=== PATIENT | male | born 1995 | race Caucasian/White ===

== ENCOUNTER 2016-09-09 15:36 | Emergency (ER) | payer BC ==
[2016-09-09 16:22] VITALS: BP 132/81
--- NOTE | 2016-09-09 16:38 | EDM.PDOC ---
ED HPI GENERAL MEDICAL PROBLEM - General Chief Complaint: Lower Extremity Injury/Pain Stated Complaint: RIGHT FOOT PAIN Time Seen by Provider: 09/09/16 16:14 Source of Information: Reports: Patient History Limitations: Reports: No Limitations - History of Present Illness INITIAL COMMENTS - FREE TEXT/NARRATIVE: HISTORY AND PHYSICAL: History of present illness: [21-year-old male with a history of paraplegia since a spinal fracture and spinal cord injury sometime ago now presents to the emergency department concerned that he has injured his right foot and ankle. Patient states from the midcalf down he cannot feel either lower extremity as a baseline. He walks with a walker. He was in his normal state of health until this morning when he woke up and appreciated his right ankle and right foot to be swollen. Patient had no wound that he is aware of and no identifiable event that he is aware could' ve injured his ankle however as mentioned he has no feeling, and feels he could easily injury by twisting it and asked on the putting weight on it without knowing.. No prior ankle or foot injury to the right lower extremity. He is not on any blood thinners nor does have any bone or bleeding problems. Review of systems: As per history of present illness and below otherwise all systems reviewed and negative. Past medical history: As per history of present illness and as reviewed below otherwise noncontributory. Surgical history: As per history of present illness and as reviewed below otherwise noncontributory. Social history: No reported history of drug or alcohol abuse. Family history: As per history of present illness and as reviewed below otherwise noncontributory. Physical exam: Well-appearing patient distress normal sensation and nontender right lower extremity down to the midcalf at which point patient has his baseline of distal anesthesia. He does have soft tissue swelling of the ankle and proximal foot. No erythema warmth fluctuance or crepitus. No bony deformity. HEENT: Normocephalic, atraumatic, pupils normal and symmetrical, supple neck, no meningismus, normal color Lungs: Normal and symmetrical chest wall excursion bilateral with no tachypnea or increased work of breathing, grossly normal chest exam Heart: No tachycardia in triage Abdomen: Normal-appearing, nondistended, no visible mass or asymmetry Pelvis: Normal-appearing Genitourinary: Deferred Rectal exam: Deferred Extremities: Otherwise Atraumatic, normal use and range of motion, no visible evidence of gross neurovascular compromise Neuro: Awake, alert, oriented. Normal and appropriate mental status. Cranial nerves grossly unremarkable. Motor function normal. Nonfocal neurologic exam. Diagnostics: [X-ray right foot and right ankle both negative interpreted by me report reviewed Therapeutics: [Ice pack applied] Per seizure: Splint applied by nurse and ER Pebbles Posterior Ortho-Glass Karthikeyan short leg splint applied 8 ankle. Hard sole shoe applied to keep it clean. Patient is aware to avoid weightbearing and use his walker. He will S ice and elevate and follow-up with PCP for reevaluation and referral to orthopedics as needed. Impression: [Right ankle swelling Right ankle sprain] Plan: [Patient without feeling in the extremity now with a suspected occult injury. No evidence of infectious findings were prodrome. Ice pack applied and x-rays pending.] X-rays negative. Signs and symptoms consistent with sprain. Splint applied. Rest ice elevate. Follow-up PCP. Definitive disposition and diagnosis as appropriate pending reevaluation and review of above. right foot Pain Score (Numeric/FACES): 7 - Related Data Allergies Allergy/AdvReac Type Severity Reaction Status Date / Time No Known Allergies Allergy Verified 09/09/16 16:17 Home Meds: Home Meds . [No Known Home Meds] 08/28/13 [History] Past Medical History - Past Health History Medical/Surgical History: Denies Medical/Surgical History Musculoskeletal History: Reports: Back Pain, Chronic, Other (See Below) Other Musculoskeletal History: left lower extremity weakness - Past Surgical History Musculoskeletal Surgical History: Reports: Other (See Below) Social & Family History - Family History Family Medical History: Noncontributory - Tobacco Use Smoking Status *Q: Never Smoker Second Hand Smoke Exposure: No - Alcohol Use Days Per Week of Alcohol Use: 4 Number of Drinks Per Day: 12 Total Drinks Per Week: 48 - Recreational Drug Use Recreational Drug Use: No Review of Systems - Review of Systems Review Of Systems: See Below (History of present illness) ED EXAM, GENERAL - Physical Exam Exam: See Below (History of present illness) Course - Vital Signs Last Recorded V/S: Last Vital Signs Temp 35.7 C 09/09/16 16:19 Pulse 89 09/09/16 16:19 Resp 18 09/09/16 16:19 BP 132/81 09/09/16 16:19 Pulse Ox 95 09/09/16 16:19 - Orders/Labs/Meds Orders: Active Orders 24 hr Category Date Time Status Ankle Min 3V Rt [CR] Stat Exams 09/09/16 16:32 Taken Foot Comp Min 3V Rt [CR] Stat Exams 09/09/16 16:32 Ordered Departure - Departure Time of Disposition: 18:29 Disposition: Home, Self-Care 01 Condition: Good Clinical Impression: Right ankle sprain, Injury of ankle - Discharge Information Instructions: Ankle Sprain, [id number], Cast or Splint Care, [id number] Referrals: Van Doe MD [Primary Care Provider] - Forms: ED Department Discharge Additional Instructions: It appears the of sprained her right ankle. Wear the splint until follow-up with your Dr. in several days. Rest apply ice and elevate whenever possible use walker try to keep the weight off it. Take ibuprofen every 6 hours as needed and follow-up with your doctor as directed for reevaluation and referral to orthopedics as needed. - My Orders Last 24 Hours: My Active Orders 09/09/16 16:32 Ankle Min 3V Rt [CR] Stat Foot Comp Min 3V Rt [CR] Stat - Assessment/Plan Last 24 Hours: My Active Orders 09/09/16 16:32 Ankle Min 3V Rt [CR] Stat Foot Comp Min 3V Rt [CR] Stat
--- NOTE | 2016-09-10 10:43 | CR ---
EXAM DATE: 09/09/16 PATIENT'S AGE: 21 Patient: REMINGTON DHILLON Facility: [place], [place] Site . Site : 1995 Study: XRay Extremity Right foot [id number] 5:16:45 PM Ordering Physician: Ezio Peters Final Report: INDICATION: injury, pain TECHNIQUE: 3 views of the right foot COMPARISON: None FINDINGS: Bones: No fractures or bone lesions. Joint spaces: Unremarkable. Soft tissues: Unremarkable. IMPRESSION: No acute bony abnormality Dictated by Arnie Calderon MD @ 09/09/2016 5:56:24 PM Dictated by: Arnie Calderon MD @ 09/09/2016 17:56:31 (Electronic Signature) Report Signed by Proxy. [facility]
--- NOTE | 2016-09-10 10:45 | CR ---
EXAM DATE: 09/09/16 PATIENT'S AGE: 21 Patient: REMINGTON DHILLON Facility: [place], [place] Site . Site : 1995 Study: XRay Extremity Right ankle [id number]/1/2017 5:17:39 PM Ordering Physician: Ezio Peters Final Report: INDICATION: pain TECHNIQUE: Three views of the right ankle. COMPARISON: August 28, 2013. FINDINGS: Bones: Remote posttraumatic deformity along posterior malleolus and along the distal tibial cortex near the syndesmotic interval. No acute fractures or bone lesions. Joint spaces: Unremarkable. Soft tissues: Unremarkable. IMPRESSION: No acute bony abnormality. Dictated by Arnie Calderon MD @ 09/09/2016 6:03:54 PM Dictated by: Arnie Calderon MD @ 09/09/2016 18:04:09 (Electronic Signature) Report Signed by Proxy. [facility]
== END 2016-09-09 18:36 | disposition home or self-care (01) ==
LOC: MW.ED 15:36
DX: S93.401A Sprain of unspecified ligament of right ankle, initial encounter (principal); X58.XXXA Exposure to other specified factors, initial encounter
CPT/HCPCS: 29515; 73610-26-RT; 73610-RT; 73630-26-RT; 73630-RT; 99283

== ENCOUNTER 2017-07-28 00:49 | Inpatient (IN) | payer BC, OTHER ==
--- NOTE | 2017-07-28 00:51 | EDM.PDOC ---
ED HPI GENERAL MEDICAL PROBLEM - General Stated Complaint: LEFT FOOT PAIN Time Seen by Provider: 07/28/17 00:51 Source of Information: Reports: Patient - History of Present Illness INITIAL COMMENTS - FREE TEXT/NARRATIVE: HISTORY AND PHYSICAL: History of present illness: [Patient presents with left lower extremity pain by private vehicle Patient is clinically intoxicated, he presents with what appears to be an unstable fracture distal tib-fib, he states that he was trying to get into a lazy bare boy chair tonight, does not provide further history about the incident No fever nausea vomiting chills sweats no chest pain shortness breath headache dizziness palpitation no bowel or urine symptoms ] Review of systems: As per history of present illness and below otherwise all systems reviewed and negative. Past medical history: As per history of present illness and as reviewed below otherwise noncontributory. Surgical history: As per history of present illness and as reviewed below otherwise noncontributory. Social history: No reported history of drug or alcohol abuse. Family history: As per history of present illness and as reviewed below otherwise noncontributory. Physical exam: HEENT: Atraumatic, normocephalic, pupils reactive, negative for conjunctival pallor or scleral icterus, mucous membranes moist, throat clear, neck supple, nontender, trachea midline. Lungs: Clear to auscultation, breath sounds equal bilaterally, chest nontender. Heart: S1S2, regular, negative for clicks, rubs, or JVD. Abdomen: Soft, nondistended, nontender. Negative for masses or hepatosplenomegaly. Negative for costovertebral tenderness. Pelvis: Stable nontender. Genitourinary: Deferred. Rectal: Deferred. Extremities: Atraumatic, negative for cords or calf pain. Neurovascular unremarkable. Left lower extremity neurovascularly intact, unstable fracture Neuro: Awake, alert, oriented. Cranial nerves II through XII unremarkable. Cerebellum unremarkable. Motor and sensory unremarkable throughout. Exam nonfocal. Diagnostics: [CBC CMP INR troponin EKG chest 1 view ] Therapeutics: [1 L normal saline bolus Zofran] Morphine 2 mg IV Ortho-Glass splint applied Patient admitted to Dr. Keller Impression: [ distal tib-fib fracture ] Dehydration Sinus tachycardia alcohol intoxication Definitive disposition and diagnosis as appropriate pending reevaluation and review of above. Left Lower Leg Pain Score (Numeric/FACES): 9 - Related Data Allergies Allergy/AdvReac Type Severity Reaction Status Date / Time No Known Allergies Allergy Verified 09/09/16 16:17 Home Meds: Home Meds . [No Known Home Meds] 08/28/13 [History] Past Medical History - Past Health History Medical/Surgical History: Denies Medical/Surgical History Musculoskeletal History: Reports: Back Pain, Chronic, Other (See Below) Other Musculoskeletal History: left lower extremity weakness - Past Surgical History Musculoskeletal Surgical History: Reports: Other (See Below) Social & Family History - Family History Family Medical History: Noncontributory ED ROS GENERAL - Review of Systems Review Of Systems: See Below ED EXAM, GENERAL - Physical Exam Exam: See Below Course - Vital Signs Last Recorded V/S: Last Vital Signs Temp 98.7 F 07/28/17 01:13 Pulse 154 H 07/28/17 01:13 Resp 18 07/28/17 01:13 BP 151/67 H 07/28/17 01:31 Pulse Ox 97 07/28/17 01:13 - Orders/Labs/Meds Orders: Active Orders 24 hr Category Date Time Status Admission Status [Patient Status] [ADT] Stat ADT 07/28/17 02:03 Active EKG 12 Lead [EKG Documentation Completion] [RC] STAT Care 07/28/17 00:55 Active Elevate Extremity [RC] CONTINUOUS Care 07/28/17 02:07 Active Nothing Per Oral Diet [DIET] Diet 07/28/17 Breakfast Active Ankle 2V Lt [CR] Stat Exams 07/28/17 00:54 Taken Tibia Fibula Lt [CR] Stat Exams 07/28/17 00:54 Taken DRUG SCREEN, URINE [URCHEM] Stat Lab 07/28/17 01:10 Ordered UA W/MICROSCOPIC [URIN] Stat Lab 07/28/17 01:10 Ordered HYDROmorphone [Dilaudid] Med 07/28/17 02:09 Active 1 mg IVPUSH Q3H PRN Lactated Ringers [Ringers, Lactated] 1,000 ml Med 07/28/17 02:15 Active IV ASDIRECTED MVI, Adult with Vitamin K [Infuvite Adult] 10 ml Med 07/28/17 02:07 Active Thiamine [Vitamin B-1] 100 mg Folic Acid 1 mg Sodium Chloride 0.9% [Normal Saline] 1,000 ml IV ONETIME Ondansetron [Zofran] Med 07/28/17 02:15 Active 4 mg IVPUSH Q6H Sodium Chloride 0.9% [Normal Saline] 1,000 ml Med 07/28/17 01:49 Active IV .Bolus Sodium Chloride 0.9% [Normal Saline] 1,000 ml Med 07/28/17 02:24 Active IV .Bolus Medication Orders Hydromorphone HCl (Dilaudid) 1 mg IVPUSH Q3H PRN PRN Reason: Pain Sodium Chloride (Normal Saline) 1,000 mls @ 999 mls/hr IV .Bolus ONE Stop: 07/28/17 02:49 Last Admin: 07/28/17 01:56 Dose: 999 mls/hr Multivitamins/Minerals 10 ml/Thiamine HCl 100 mg/ Folic Acid 1 mg/ Sodium Chloride 1,011.2 mls @ 999 mls/hr IV ONETIME ONE Stop: 07/28/17 03:07 Lactated Ringer's (Ringers, Lactated) 1,000 mls @ 125 mls/hr IV ASDIRECTED MARIAA Sodium Chloride (Normal Saline) 1,000 mls @ 999 mls/hr IV .Bolus ONE Stop: 07/28/17 03:24 Ondansetron HCl (Zofran) 4 mg IVPUSH Q6H [facility] Labs: Laboratory Tests 07/28/17 07/28/17 07/28/17 Range/Units 01:10 01:10 01:15 WBC 7.69 (4.0-11.0) K/uL RBC 5.09 (4.50-5.90) M/uL Hgb 15.4 (13.0-17.0) g/dL Hct 44.2 (38.0-50.0) % MCV 86.8 (80.0-98.0) fL MCH 30.3 (27.0-32.0) pg MCHC 34.8 (31.0-37.0) g/dL RDW Std Deviation 40.8 (28.0-62.0) fl RDW Coeff of Gregory 13 (11.0-15.0) % Plt Count 361 (150-400) K/uL MPV 10.40 (7.40-12.00) fL Neut % (Auto) 50.5 (48.0-80.0) % Lymph % (Auto) 42.1 H (16.0-40.0) % [place] % (Auto) 6.1 (0.0-15.0) % Eos % (Auto) 1.0 (0.0-7.0) % Baso % (Auto) 0.3 (0.0-1.5) % Neut # (Auto) 3.9 (1.4-5.7) K/uL Lymph # (Auto) 3.2 H (0.6-2.4) K/uL [place] # (Auto) 0.5 (0.0-0.8) K/uL Eos # (Auto) 0.1 (0.0-0.7) K/uL Baso # (Auto) 0.0 (0.0-0.1) K/uL Nucleated RBC % 0.0 /100WBC Nucleated RBCs # 0 K/uL INR Sodium (136-148) mmol/L Potassium (3.5-5.1) mmol/L Chloride (98-107) mmol/L Carbon Dioxide (21.0-32.0) mmol/L BUN (7.0-18.0) mg/dL Creatinine (0.8-1.3) mg/dL Est Cr Clr Drug Dosing mL/min Estimated GFR (MDRD) ml/min Glucose (74-106) mg/dL Calcium (8.5-10.1) mg/dL Total Bilirubin (0.2-1.0) mg/dL AST (15-37) IU/L ALT (14-63) IU/L Alkaline Phosphatase (46-116) U/L Troponin I (0.000-0.056) ng/mL Total Protein (6.4-8.2) g/dL Albumin (3.4-5.0) g/dL Globulin (2.0-3.5) g/dL Albumin/Globulin Ratio (1.3-2.8) Urine Color YELLOW Urine Appearance CLEAR Urine pH 5.5 (5.0-8.0) Ur Specific [place]ady <= 1.005 (1.001-1.035) Urine Protein NEGATIVE (NEGATIVE) mg/dL Urine Glucose (UA) NEGATIVE (NEGATIVE) mg/dL Urine Ketones NEGATIVE (NEGATIVE) mg/dL Urine Occult Blood NEGATIVE (NEGATIVE) Urine Nitrite NEGATIVE (NEGATIVE) Urine Bilirubin NEGATIVE (NEGATIVE) Urine Urobilinogen 0.2 (<2.0) EU/dL Ur Leukocyte Esterase NEGATIVE (NEGATIVE) Urine RBC NONE SEEN (0-2/HPF) Urine WBC NONE SEEN (0-5/HPF) Ur Epithelial Cells RARE (NONE-FEW) Urine Bacteria RARE (NEGATIVE) Urine Opiates Screen NEGATIVE (NEGATIVE) Ur Oxycodone Screen NEGATIVE (NEGATIVE) Urine Methadone Screen NEGATIVE (NEGATIVE) Ur Barbiturates Screen NEGATIVE (NEGATIVE) Ur Phencyclidine Scrn NEGATIVE (NEGATIVE) Ur Amphetamine Screen NEGATIVE (NEGATIVE) U Methamphetamines Scrn NEGATIVE (NEGATIVE) U Benzodiazepines Scrn NEGATIVE (NEGATIVE) U Cocaine Metab Screen NEGATIVE (NEGATIVE) U Marijuana (THC) Screen NEGATIVE (NEGATIVE) Ethyl Alcohol mg/dL 07/28/17 07/28/17 07/28/17 Range/Units 01:15 01:15 01:15 WBC (4.0-11.0) K/uL RBC (4.50-5.90) M/uL Hgb (13.0-17.0) g/dL Hct (38.0-50.0) % MCV (80.0-98.0) fL MCH (27.0-32.0) pg MCHC (31.0-37.0) g/dL RDW Std Deviation (28.0-62.0) fl RDW Coeff of Gregory (11.0-15.0) % Plt Count (150-400) K/uL MPV (7.40-12.00) fL Neut % (Auto) (48.0-80.0) % Lymph % (Auto) (16.0-40.0) % [place] % (Auto) (0.0-15.0) % Eos % (Auto) (0.0-7.0) % Baso % (Auto) (0.0-1.5) % Neut # (Auto) (1.4-5.7) K/uL Lymph # (Auto) (0.6-2.4) K/uL [place] # (Auto) (0.0-0.8) K/uL Eos # (Auto) (0.0-0.7) K/uL Baso # (Auto) (0.0-0.1) K/uL Nucleated RBC % /100WBC Nucleated RBCs # K/uL INR 0.98 Sodium 141 (136-148) mmol/L Potassium 3.6 (3.5-5.1) mmol/L Chloride 103 (98-107) mmol/L Carbon Dioxide 24.3 (21.0-32.0) mmol/L BUN 12 (7.0-18.0) mg/dL Creatinine 1.2 (0.8-1.3) mg/dL Est Cr Clr Drug Dosing 116.54 mL/min Estimated GFR (MDRD) > 60.0 ml/min Glucose 138 H (74-106) mg/dL Calcium 8.1 L (8.5-10.1) mg/dL Total Bilirubin 0.2 (0.2-1.0) mg/dL AST 44 H (15-37) IU/L ALT 80 H (14-63) IU/L Alkaline Phosphatase 121 H (46-116) U/L Troponin I < 0.050 (0.000-0.056) ng/mL Total Protein 8.4 H (6.4-8.2) g/dL Albumin 4.0 (3.4-5.0) g/dL Globulin 4.4 H (2.0-3.5) g/dL Albumin/Globulin Ratio 0.9 L (1.3-2.8) Urine Color Urine Appearance Urine pH (5.0-8.0) Ur Specific [place] (1.001-1.035) Urine Protein (NEGATIVE) mg/dL Urine Glucose (UA) (NEGATIVE) mg/dL Urine Ketones (NEGATIVE) mg/dL Urine Occult Blood (NEGATIVE) Urine Nitrite (NEGATIVE) Urine Bilirubin (NEGATIVE) Urine Urobilinogen (<2.0) EU/dL Ur Leukocyte Esterase (NEGATIVE) Urine RBC (0-2/HPF) Urine WBC (0-5/HPF) Ur Epithelial Cells (NONE-FEW) Urine Bacteria (NEGATIVE) Urine Opiates Screen (NEGATIVE) Ur Oxycodone Screen (NEGATIVE) Urine Methadone Screen (NEGATIVE) Ur Barbiturates Screen (NEGATIVE) Ur Phencyclidine Scrn (NEGATIVE) Ur Amphetamine Screen (NEGATIVE) U Methamphetamines Scrn (NEGATIVE) U Benzodiazepines Scrn (NEGATIVE) U Cocaine Metab Screen (NEGATIVE) U Marijuana (THC) Screen (NEGATIVE) Ethyl Alcohol 281 mg/dL Meds: Medications Generic Name Dose Route Start Last Admin Trade Name Freq PRN Reason Stop Dose Admin Hydromorphone HCl 1 mg 07/28/17 02:09 Dilaudid IVPUSH Q3H PRN Pain Sodium Chloride 1,000 mls @ 999 mls/hr 07/28/17 01:49 07/28/17 01:56 Normal Saline IV 07/28/17 02:49 999 mls/hr .Bolus ONE Administration Multivitamins/Minerals 10 ml/ 1,011.2 mls @ 999 mls/hr 07/28/17 02:07 Thiamine HCl 100 mg/ Folic IV 07/28/17 03:07 Acid 1 mg/ Sodium Chloride ONETIME ONE Lactated Ringer's 1,000 mls @ 125 mls/hr 07/28/17 02:15 Ringers, Lactated IV ASDIRECTED MARIAA Sodium Chloride 1,000 mls @ 999 mls/hr 07/28/17 02:24 Normal Saline IV 07/28/17 03:24 .Bolus ONE Ondansetron HCl 4 mg 07/28/17 02:15 Zofran IVPUSH Q6H MARIAA Discontinued Medications Generic Name Dose Route Start Last Admin Trade Name Freq PRN Reason Stop Dose Admin Morphine Sulfate 2 mg 07/28/17 01:51 07/28/17 01:56 Morphine IVPUSH 07/28/17 01:52 2 mg ONETIME ONE Administration Departure - Departure Time of Disposition: 02:25 Disposition: Refer to Observation Condition: Poor Clinical Impression: Fracture of distal end of tibia with fibula, Alcohol intoxication, Sinus tachycardia - Discharge Information Referrals: PCP,None [Primary Care Provider] - - My Orders Last 24 Hours: My Active Orders 07/28/17 00:54 Ankle 2V Lt [CR] Stat Tibia Fibula Lt [CR] Stat 07/28/17 00:55 EKG 12 Lead [EKG Documentation Completion] [RC] STAT 07/28/17 01:10 DRUG SCREEN, URINE [URCHEM] Stat UA W/MICROSCOPIC [URIN] Stat 07/28/17 01:49 Sodium Chloride 0.9% [Normal Saline] 1,000 ml IV .Bolus 07/28/17 02:07 MVI, Adult with Vitamin K [Infuvite Adult] 10 ml Thiamine [Vitamin B-1] 100 mg Folic Acid 1 mg Sodium Chloride 0.9% [Normal Saline] 1,000 ml IV ONETIME 07/28/17 02:24 Sodium Chloride 0.9% [Normal Saline] 1,000 ml IV .Bolus - Assessment/Plan Last 24 Hours: My Active Orders 07/28/17 00:54 Ankle 2V Lt [CR] Stat Tibia Fibula Lt [CR] Stat 07/28/17 00:55 EKG 12 Lead [EKG Documentation Completion] [RC] STAT 07/28/17 01:10 DRUG SCREEN, URINE [URCHEM] Stat UA W/MICROSCOPIC [URIN] Stat 07/28/17 01:49 Sodium Chloride 0.9% [Normal Saline] 1,000 ml IV .Bolus 07/28/17 02:07 MVI, Adult with Vitamin K [Infuvite Adult] 10 ml Thiamine [Vitamin B-1] 100 mg Folic Acid 1 mg Sodium Chloride 0.9% [Normal Saline] 1,000 ml IV ONETIME 07/28/17 02:24 Sodium Chloride 0.9% [Normal Saline] 1,000 ml IV .Bolus
[2017-07-28 01:48] LABS: CHLORIDE,CL 103 mmol/L (98-107); SODIUM,NA 141 mmol/L (136-148)
[2017-07-28] MEDS ORDERED: Sodium Chloride 0.9% 1,000 ML IV ONE ×2 (01:49→02:24)
[2017-07-28] MEDS ORDERED: Morphine 2 MG/ML Syringe IVPUSH ONE (01:51)
[2017-07-28] MEDS ORDERED: MVI, Adult with Vitamin K 10 ML, Thiamine 100 MG, Folic Acid 1 MG in Sodium Chloride 0.... IV ONE ×4 (02:07)
[2017-07-28] MEDS: Ondansetron 4 MG/2 ML SDV IVPUSH SCH ×3 (03:38→18:14)
[2017-07-28] MEDS: Lactated Ringers 1,000 ML IV SCH ×3 (03:38→21:17)
[2017-07-28] MEDS: HYDROmorphone 1 MG/ML Syringe IVPUSH PRN ×5 (03:38→21:16)
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
[2017-07-28] MEDS ORDERED: LORazepam 2 MG/ML SDV IVPUSH PRN (08:05)
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
[2017-07-28] MEDS: Acetaminophen/HYDROcodone 325-10 MG Tab PO PRN ×3 (08:39→19:48)
[2017-07-28] MEDS: Pantoprazole 40 MG Vial IVPUSH SCH (08:47)
[2017-07-28] MEDS: Docusate Sodium 100 MG Cap PO SCH ×2 (08:50→21:16)
[2017-07-28] MEDS: Thiamine 200 MG/2 ML MDV IV SCH (08:51)
[2017-07-28] MEDS: Folic Acid 50 MG/10 ML MDV SUBCUT SCH (08:54)
--- NOTE | 2017-07-28 09:45 | CR ---
EXAM DATE: 07/28/17 PATIENT'S AGE: 22 Patient: REMINGTON DHILLON Facility: [place], [place] Site . Site : 1995 Study: XRay Extremity Left [id number] 1:48:16 AM Ordering Physician: Beth Choe Final Report: INDICATION: FALL TECHNIQUE: 2 views of the left ankle COMPARISON: None FINDINGS/IMPRESSION: Bones: Mildly displaced spiral fracture of the distal tibial diaphysis. Segmental fracture of the distal fibular diaphysis. There is associated surrounding soft tissue swelling. Joint spaces: Unremarkable. Dictated by: Arnie Calderon MD @ 07/28/2017 01:53:48 (Electronic Signature) Report Signed by Proxy. [facility]
--- NOTE | 2017-07-28 09:45 | CR ---
EXAM DATE: 07/28/17 PATIENT'S AGE: 22 Patient: REMINGTON DHILLON Facility: [place], [place] Site . Site : 1995 Study: XRay Extremity Left [id number]/19/2018 1:47:40 AM Ordering Physician: Beth Choe Final Report: INDICATION: fall TECHNIQUE: Left tibial/fibular series COMPARISON: None FINDINGS/IMPRESSION: Bones: Mildly displaced spiral fracture of the distal tibial diaphysis. Segmental fracture of the distal fibular diaphysis. There is associated surrounding soft tissue swelling. Joint spaces: Unremarkable. Dictated by Arnie Calderon MD @ 07/28/2017 1:51:50 AM Dictated by: Arnie Calderon MD @ 07/28/2017 01:52:12 (Electronic Signature) Report Signed by Proxy. [facility]
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
--- NOTE | 2017-07-28 11:47 | CR ---
EXAMINATION: Portable chest radiograph. HISTORY: Tachycardia. COMPARISON: 05/18/2015 FINDINGS: The trachea is midline. The cardiomediastinal silhouette is within normal limits. No pulmonary infilt rates, effusions or pneumothorax. Osseous structures appear unremarkable. IMPRESSION: No acute cardiopulmonary process.
[2017-07-28] MEDS ORDERED: Bisacodyl 10 MG Supp RECTAL PRN (12:25)
[2017-07-28] MEDS ORDERED: Polyethylene Glycol 3350 Powder 17 GM Packet PO PRN (12:25)
--- NOTE | 2017-07-28 14:56 | CT ---
EXAMINATION: CT left ankle HISTORY: Fracture COMPARISON: 07/28/2017 TECHNIQUE: Axial CT images obtained through the left ankle without contrast. Coronal and sagittal rec onstructions obtained. FINDINGS: Oblique minimally displaced distal tibia and fibular fractures are noted. There is no intra -articular extension identified. Ankle mortise and talar dome appear intact. Remaining joint spaces a ppear preserved. The adjacent musculature appears atrophied. Mild adjacent soft tissue swelling and e [place]. IMPRESSION: Mildly displaced distal tibia and fibular fractures without intra-articular extension.
[2017-07-29] MEDS: Ondansetron 4 MG/2 ML SDV IVPUSH SCH ×5 (00:07→23:17)
[2017-07-29] MEDS: HYDROmorphone 1 MG/ML Syringe IVPUSH PRN ×6 (00:45→20:57)
[2017-07-29] MEDS: Lactated Ringers 1,000 ML IV SCH ×2 (05:09→16:52)
[2017-07-29 06:27] LABS: CHLORIDE,CL 105 mmol/L (98-107); SODIUM,NA 140 mmol/L (136-148)
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
[2017-07-29] MEDS ORDERED: Bupivacaine 0.5% 10 ML SDV ONE (07:22)
[2017-07-29] MEDS ORDERED: Lidocaine 2% 5 ML SDV ONE (07:26)
[2017-07-29] MEDS ORDERED: Midazolam 1 MG/ML 2 ML SDV ONE (07:27)
[2017-07-29] MEDS ORDERED: fentaNYL 100 MCG/2 ML SDV ONE ×2 (07:27→09:23)
[2017-07-29] MEDS ORDERED: fentaNYL 250 MCG/5 ML SDV ONE (07:27)
[2017-07-29] MEDS ORDERED: Propofol 200 MG/20 ML SDV ONE ×2 (07:27→07:30)
[2017-07-29] MEDS ORDERED: HYDROmorphone 2 MG/ML SDV ONE (07:36)
--- NOTE | 2017-07-29 07:55 | PCM.CONSN ---
- General Info Date of Service: 07/29/17 Admission Dx/Problem (Free Text): Admission Diagnosis/Problem Admission Diagnosis/Problem Fracture of distal end of tibia with fibula Subjective Update: Doing well this morning. Eager to go to the OR. Denies chest pain or shortness of breath. Functional Status: Reports: Pain Controlled, Tolerating Diet, Ambulating, Urinating - Review of Systems General: Reports: No Symptoms. Denies: Fever, Weakness, Fatigue, Malaise HEENT: Reports: No Symptoms. Denies: Sore Throat, Rhinitis, Visual Changes Pulmonary: Reports: No Symptoms. Denies: Shortness of Breath Cardiovascular: Reports: No Symptoms. Denies: Chest Pain Gastrointestinal: Reports: No Symptoms. Denies: Abdominal Pain, Nausea, Vomiting Genitourinary: Reports: No Symptoms. Denies: Dysuria, Frequency, Burning Musculoskeletal: Reports: Leg Pain (Left lower leg pain) Skin: Reports: No Symptoms Neurological: Reports: No Symptoms. Denies: Tremors Psychiatric: Reports: No Symptoms - Patient Data Vitals - Most Recent: Last Vital Signs Temp 97.3 F 07/29/17 07:46 Pulse 82 07/29/17 07:46 Resp 16 07/29/17 07:46 BP 146/82 H 07/29/17 07:46 Pulse Ox 100 07/29/17 07:46 Weight - Most Recent: 127.006 kg I&O - Last 24 Hours: Intake & Output 07/28/17 07/29/17 07/29/17 22:59 06:59 14:59 Intake Total 1949 2157 Output Total 835 435 Balance 1199 1682 Lab Results Last 24 Hours: Laboratory Results - last 24 hr 07/29/17 07/29/17 Range/Units 05:12 05:12 WBC 7.08 (4.0-11.0) K/uL RBC 4.25 L (4.50-5.90) M/uL Hgb 12.7 L (13.0-17.0) g/dL Hct 37.9 L (38.0-50.0) % MCV 89.2 (80.0-98.0) fL MCH 29.9 (27.0-32.0) pg MCHC 33.5 (31.0-37.0) g/dL RDW Std Deviation 41.7 (28.0-62.0) fl RDW Coeff of Gregory 13 (11.0-15.0) % Plt Count 268 (150-400) K/uL MPV 10.10 (7.40-12.00) fL Neut % (Auto) 53.1 (48.0-80.0) % Lymph % (Auto) 33.6 (16.0-40.0) % Cass % (Auto) 9.9 (0.0-15.0) % Eos % (Auto) 3.1 (0.0-7.0) % Baso % (Auto) 0.3 (0.0-1.5) % Neut # (Auto) 3.8 (1.4-5.7) K/uL Lymph # (Auto) 2.4 (0.6-2.4) K/uL Cass # (Auto) 0.7 (0.0-0.8) K/uL Eos # (Auto) 0.2 (0.0-0.7) K/uL Baso # (Auto) 0.0 (0.0-0.1) K/uL Nucleated RBC % 0.0 /100WBC Nucleated RBCs # 0 K/uL Sodium 140 (136-148) mmol/L Potassium 4.1 (3.5-5.1) mmol/L Chloride 105 (98-107) mmol/L Carbon Dioxide 30.1 (21.0-32.0) mmol/L BUN 11 (7.0-18.0) mg/dL Creatinine 0.9 (0.8-1.3) mg/dL Est Cr Clr Drug Dosing 155.38 mL/min Estimated GFR (MDRD) > 60.0 ml/min Glucose 92 (74-106) mg/dL Calcium 8.4 L (8.5-10.1) mg/dL Total Bilirubin 0.4 (0.2-1.0) mg/dL AST 17 (15-37) IU/L ALT 44 (14-63) IU/L Alkaline Phosphatase 112 (46-116) U/L Total Protein 6.4 (6.4-8.2) g/dL Albumin 2.9 L (3.4-5.0) g/dL Globulin 3.5 (2.0-3.5) g/dL Albumin/Globulin Ratio 0.8 L (1.3-2.8) Med Orders - Current: Current Medications Hydrocodone Bitart/Acetaminophen (Lerna 325-10 Mg) 1 - 2 tab PO Q4H PRN PRN Reason: Pain Last Admin: 07/28/17 19:48 Dose: 2 tab Bisacodyl (Dulcolax) 10 mg RECTAL DAILY PRN PRN Reason: Constipation Docusate Sodium (Colace) 100 mg PO BID [facility] Last Admin: 07/28/17 21:16 Dose: 100 mg Docusate Sodium (Colace) 100 mg PO DAILY [facility] Folic Acid (Folic Acid) 1 mg SUBCUT DAILY [facility] Last Admin: 07/28/17 08:54 Dose: 1 mg Hydromorphone HCl (Dilaudid) 1 mg IVPUSH Q3H PRN PRN Reason: Pain Last Admin: 07/29/17 04:14 Dose: 1 mg Lactated Ringer's (Ringers, Lactated) 1,000 mls @ 125 mls/hr IV ASDIRECTED [facility] Last Admin: 07/29/17 05:09 Dose: 125 mls/hr Cefazolin Sodium/Dextrose 2 gm (/ Premix) 50 mls @ 100 mls/hr IV ONETIME ONE Stop: 07/29/17 08:46 Lorazepam (Ativan) 0 mg IVPUSH Q4H PRN; Protocol PRN Reason: CIWAA Ondansetron HCl (Zofran) 4 mg IVPUSH Q6H [facility] Last Admin: 07/29/17 05:15 Dose: 4 mg Pantoprazole Sodium (Protonix Iv) 40 mg IVPUSH Q24H [facility] Last Admin: 07/28/17 08:47 Dose: 40 mg Polyethylene Glycol (Miralax) 17 gm PO DAILY PRN PRN Reason: Constipation Thiamine HCl (Vitamin B-1) 100 mg IV DAILY [facility] Last Admin: 07/28/17 08:51 Dose: 100 mg Discontinued Medications Bupivacaine HCl (Sensorcaine-Mpf 0.5%) Confirm Administered Dose 10 ml .ROUTE .STK-MED ONE Stop: 07/29/17 07:23 Fentanyl (Sublimaze) Confirm Administered Dose 100 mcg .ROUTE .STK-MED ONE Stop: 07/29/17 07:28 Fentanyl (Sublimaze) Confirm Administered Dose 250 mcg .ROUTE .STK-MED ONE Stop: 07/29/17 07:28 Hydromorphone HCl (Dilaudid) Confirm Administered Dose 2 mg .ROUTE .STK-MED ONE Stop: 07/29/17 07:37 Sodium Chloride (Normal Saline) 1,000 mls @ 999 mls/hr IV .Bolus ONE Stop: 07/28/17 02:49 Last Admin: 07/28/17 01:56 Dose: 999 mls/hr Multivitamins/Minerals 10 ml/Thiamine HCl 100 mg/ Folic Acid 1 mg/ Sodium Chloride 1,011.2 mls @ 999 mls/hr IV ONETIME ONE Stop: 07/28/17 03:07 Last Admin: 07/28/17 02:24 Dose: 999 mls/hr Sodium Chloride (Normal Saline) 1,000 mls @ 999 mls/hr IV .Bolus ONE Stop: 07/28/17 03:24 Last Admin: 07/28/17 03:43 Dose: Not Given Lidocaine (Xylocaine-Mpf 2%) Confirm Administered Dose 10 ml .ROUTE .STK-MED ONE Stop: 07/29/17 07:27 Midazolam HCl (Versed 1 Mg/Ml) Confirm Administered Dose 2 mg .ROUTE .STK-MED ONE Stop: 07/29/17 07:28 Morphine Sulfate (Morphine) 2 mg IVPUSH ONETIME ONE Stop: 07/28/17 01:52 Last Admin: 07/28/17 01:56 Dose: 2 mg Ondansetron HCl (Zofran) 4 mg IVPUSH Q6H [facility] Last Admin: 07/28/17 18:14 Dose: 4 mg Propofol (Diprivan 20 Ml) Confirm Administered Dose 400 mg .ROUTE .STK-MED ONE Stop: 07/29/17 07:28 Propofol (Diprivan 20 Ml) Confirm Administered Dose 200 mg .ROUTE .STK-MED ONE Stop: 07/29/17 07:31 - Exam General: Alert, Oriented, Cooperative, No Acute Distress Lungs: Clear to Auscultation, Normal Respiratory Effort Cardiovascular: Regular Rate, Regular Rhythm GI/Abdominal Exam: Normal Bowel Sounds, Soft Extremities: Normal Inspection, No Pedal Edema Wound/Incisions: Dressing Dry and Intact (splint to left lower leg) Neurological: No New Focal Deficit Psy/Mental Status: Alert, Normal Affect, Normal Mood Consult PN Assessment/Plan Procedures: Procedures APPLICATION LOWER LEG SPLINT (09/09/16) ASSAY OF LIPASE (05/18/15) ASSAY THYROID STIM HORMONE (02/28/16) CHEST X-RAY 1 VIEW FRONTAL (05/18/15) COMPLETE CBC W/AUTO DIFF WBC (02/28/16) COMPREHEN METABOLIC PANEL (02/28/16) CT LUMBAR SPINE W/O DYE (01/02/16) ELECTROCARDIOGRAM TRACING (05/18/15) EMERGENCY DEPT VISIT (09/09/16) EMERGENCY DEPT VISIT (05/18/15) EMERGENCY DEPT VISIT (08/28/13) HYDRATION IV INFUSION INIT (05/18/15) ROUTINE VENIPUNCTURE (02/28/16) THER/PROPH/DIAG INJ SC/IM (08/28/13) URINALYSIS AUTO W/SCOPE (05/18/15) X-RAY EXAM OF ANKLE (09/09/16) X-RAY EXAM OF FOOT (09/09/16) X-RAY EXAM OF PELVIS (05/18/15) X-RAY EXAM OF SPINE 1 VIEW (05/18/15) (1) Fracture of distal end of tibia with fibula SNOMED Code(s): 582568888, 427061939 Code(s): S82.309A - UNSP FRACTURE OF LOWER END OF UNSP TIBIA, INIT FOR CLOS FX; S82.839A - OTH FRACTURE OF UPPER AND LOWER END OF UNSP FIBULA, INIT Current Visit: Yes Qualifiers: Encounter type: initial encounter Fracture type: closed Laterality: left Qualified Code(s): S82.302A - Unspecified fracture of lower end of left tibia , initial encounter for closed fracture; S82.832A - Other fracture of upper and lower end of left fibula, initial encounter for closed fracture (2) Hx of spinal cord injury SNOMED Code(s): 53047270657348 Code(s): Z87.828 - PERSONAL HISTORY OF OTH (HEALED) PHYSICAL INJURY AND TRAUMA Current Visit: Yes (3) Fusion of lumbar spine SNOMED Code(s): 492240640 Code(s): M43.26 - FUSION OF SPINE, LUMBAR REGION Current Visit: Yes (4) Alcohol intoxication SNOMED Code(s): 73082330 Code(s): F10.929 - ALCOHOL USE, UNSPECIFIED WITH INTOXICATION, UNSPECIFIED Current Visit: Yes (5) Sinus tachycardia SNOMED Code(s): 10681518 Code(s): R00.0 - TACHYCARDIA, UNSPECIFIED Current Visit: Yes (6) Alcohol abuse SNOMED Code(s): 55085352 Code(s): F10.10 - ALCOHOL ABUSE, UNCOMPLICATED Current Visit: Yes (7) Tobacco abuse SNOMED Code(s): 821143756 Code(s): Z72.0 - TOBACCO USE Current Visit: Yes Problem List Initiated/Reviewed/Updated: Yes My Orders Last 24 Hours: My Active Orders 07/28/17 08:05 CIWAA Assessment [RC] Q4H LORazepam [Ativan] See Protocol IVPUSH Q4H PRN 07/28/17 08:15 Pantoprazole [ProTONIX IV] 40 mg IVPUSH Q24H 07/28/17 08:25 Telemetry Monitoring [Cardiac Monitoring] [RC] Q8H 07/28/17 09:00 Folic Acid 1 mg SUBCUT DAILY Thiamine [Vitamin B-1] 100 mg IV DAILY 07/28/17 12:25 Bisacodyl [Dulcolax] 10 mg RECTAL DAILY PRN Polyethylene Glycol 3350 [MiraLAX] 17 gm PO DAILY PRN 07/29/17 09:00 Docusate Sodium [Colace] 100 mg PO DAILY Plan: This 22 year old male admitted with L tib/fib fracture with Dr Becerra. Hospitalist service consulted due to ETOH abuse and sinus tachycardia 1. Tib/Fib fracture: To OR today with Dr Becerra, pain management per Dr Becerra. 2. Tachycardia: Resolved. Will remove telemetry. 3. Alcohol abuse: CIWAA assessment and Ativan Protocol. Supplement thiamine and folic acid. CIWAAs 3-4 no ativan given. 4. Tobacco abuse: Due to tachycardia, would not replace nicotine while hospitalized, Explained this to patient and he is ok with this. Discussed prolonged healing with nicotine use. He verbalized understanding, but declined help quitting at this time. VTE prophylaxis: SCDs. Would recommended DVT prophylaxis when deemed appropriate by Orthopedics.
--- NOTE | 2017-07-29 08:10 | PCM.SN ---
- Free Text/Narrative Note: Patient comfortable overnight. Appreciate hospitalist assistance with medical management. CT of ankle reviewed. Does not show evidence of intra-articular extension. Will plan to proceed with CR of left tibia with insertion of IM rode. D/w patient procedure and post operative course. Patient in agreement with plan. R&G discussed yesterday. Will proceed today.
--- NOTE | 2017-07-29 08:12 | PCM.OPNOTE ---
- General Post-Op/Procedure Note Date of Surgery/Procedure: 07/29/17 Operative Procedure(s): closed reduction left tibia with insertion of IM adalgisa Post-Op Diagnosis: left tibia/fibula fracture Anesthesia Technique: General ET Tube Primary Surgeon: Evie Becerra Order Entry: Rozina Newberry in mLs: 50 Condition: Stable Free Text/Narrative:: tt=0 min #[id number] Intake & Output 07/28/17 07/29/17 07/29/17 22:59 06:59 14:59 Intake Total 1949 2157 Output Total 892 579 Balance 1199 9859
[2017-07-29] MEDS ORDERED: ceFAZolin 2 GM in Premix Bag 1 BAG IV ONE (08:17)
[2017-07-29] MEDS ORDERED: HYDROmorphone 2 MG/ML SDV IVPUSH ONE (08:56)
[2017-07-29] MEDS ORDERED: Docusate Sodium 100 MG Cap PO SCH (09:00)
[2017-07-29] MEDS ORDERED: Rocuronium 10 MG/ML 10 ML Syringe ONE ×2 (09:25)
[2017-07-29] MEDS: Pantoprazole 40 MG Vial IVPUSH SCH (09:25)
[2017-07-29] MEDS ORDERED: Ketorolac 30 MG/ML SDV ONE (09:26)
[2017-07-29] MEDS ORDERED: Ondansetron 4 MG/2 ML SDV ONE (09:26)
[2017-07-29] MEDS ORDERED: Glycopyrrolate 0.2 MG/ML SDV ONE (09:26)
[2017-07-29] MEDS ORDERED: Neostigmine Methylsulfate 1 MG/ML 5 ML Syringe ONE (09:26)
[2017-07-29] MEDS: Docusate Sodium 100 MG Cap PO SCH ×2 (09:28→20:57)
[2017-07-29] MEDS: Folic Acid 50 MG/10 ML MDV SUBCUT SCH (09:28)
[2017-07-29] MEDS: Thiamine 200 MG/2 ML MDV IV SCH (09:29)
[2017-07-29] MEDS: fentaNYL 100 MCG/2 ML SDV IVPUSH PRN ×2 (11:10→11:16)
[2017-07-29] MEDS ORDERED: Naloxone 0.4 MG/ML Syringe ONE (11:31)
[2017-07-29] MEDS: Acetaminophen/HYDROcodone 325-10 MG Tab PO PRN (13:11)
[2017-07-29] MEDS ORDERED: Albuterol 0.083% 2.5 MG/3 ML Neb Soln NEB PRN (13:42)
--- NOTE | 2017-07-29 13:50 | CR ---
EXAMINATION: Left tibia HISTORY: nailing COMPARISON: CT dated 07/28/2017 TECHNIQUE: 6 operative control films provided FINDINGS/IMPRESSION: Operative control films demonstrate an intramedullary adalgisa traversing an oblique distal tibia fracture in near anatomic alignment. There is a mildly displaced displaced adjacent obli que distal fibular fracture also noted.
[2017-07-29] MEDS: Ketorolac 30 MG/ML SDV IVPUSH SCH ×2 (13:54→18:51)
--- NOTE | 2017-07-29 14:00 | OR ---
SURGEON: Evie Becerra MD DATE OF PROCEDURE: 07/29/2017 PREOPERATIVE DIAGNOSIS: Left distal 1/3rd tibia and fibula fracture. POSTOPERATIVE DIAGNOSIS: Left distal 1/3rd tibia and fibula fracture. PROCEDURE: Closed reduction, left tibia with insertion of intramedullary nail. HEALTH DIRECTOR: Rozina Newberry PA-C ANESTHESIA: General. ESTIMATED BLOOD LOSS: 50 mL. TOURNIQUET TIME: 0 minutes. COMPLICATIONS: None. DVT PROPHYLAXIS: PAS boot to the nonoperative leg. IMPLANTS USED: [place] T2 tibial nail (11 mm x 375 mm) and five 5.0 mm screws. BRIEF HISTORY: John is a 22-year-old male who injured his left lower extremity while getting into a lazy Boy recliner while intoxicated. He complained of pain in his left lower extremity. 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 X- rays were obtained, which showed a distal 1/3rd tibia fracture. He was admitted for evaluation. He was evaluated by the hospitalist preoperatively. I did recommend surgical treatment of the fracture. The risks and goals of the procedure were discussed with the patient and were documented preoperatively. He agreed to proceed. A CT scan had been done preoperatively and no evidence of intra-articular extension was noted. DESCRIPTION OF PROCEDURE: The patient was properly identified and brought to the operating room. He was transferred from the OR cart and placed on the operating room table in supine position. General anesthesia was administered. After adequate anesthesia was obtained, a well-padded tourniquet was applied to the left lower extremity. Left lower extremity was then prepped in standard fashion using ChloraPrep solution, then sterilely draped. A time-out was performed to ensure correct site and procedure. Preoperative antibiotics were given. The surgical site had been marked preoperatively. An incision was made just inferior to the patella to the tibial tubercle. Subcutaneous tissues were incised. The paratenon was identified and incised. The patella tendon was then incised in a midline fashion. A K-wire was then inserted into the proximal tibia just medial to the lateral tibial eminence. The position of the K-wire was checked in both the AP and lateral views and was felt to be appropriate. An anterior reamer was then placed into the proximal tibia. A ball-tip guide adalgisa was then passed into the proximal tibia. The fracture was held in a reduced position and the guide adalgisa was then passed to the level of the epiphyseal scar in the distal tibia. This was then measured. It was felt that a 375 mm adalgisa would be the appropriate length. The tibia was then held in a reduced position as reamers were sequentially passed. We were able to ream to a 12.5 mm diameter, which was felt to be appropriate. We elected to proceed with the 11-mm adalgisa. The 11-mm adalgisa was then assembled to the inserted device on the back table. The adalgisa was inserted without difficulty. It easily passed the fracture site and it was malleted in position to the level of the epiphyseal scar. The length of the nail was checked both distally and proximally, it was felt to be appropriate. Two 5.0 mm static screws were then placed into the proximal tibia. The screw assembly device was then removed. The position of the fracture was checked in both AP and lateral plane and alignment was nearly anatomic. Perfect circles were made using the C-arm image intensifier. Three distal interlocking screws were then placed, 2 in the [id number] plane and 1 in the [id number] plane. Final C-arm images confirmed good position of the hardware with acceptable reduction of the fracture. The wounds were then irrigated with saline solution. The paratenon was closed over the patella tendon using 3-0 Monocryl. Subcutaneous tissues were closed with 2-0 Vicryl and the skin was closed with adi. Xeroform gauze was placed over the wounds and a bulky dressing was applied. He was placed in a well-padded posterior splint due to his neuropathy. He was awakened from his anesthetic and transferred back to the operating room cart. He was brought to recovery room in stable condition. All needle and sponge counts were correct. CATARINO / BILLY /[id number]
[2017-07-29] MEDS: ceFAZolin 2 GM in Premix Bag 1 BAG IV SCH ×2 (15:18→23:17)
[2017-07-29] MEDS: Acetaminophen/oxyCODONE 325-5 MG Tab PO PRN ×2 (16:21→23:15)
[2017-07-30] MEDS: HYDROmorphone 1 MG/ML Syringe IVPUSH PRN ×2 (00:33→05:37)
[2017-07-30] MEDS: Lactated Ringers 1,000 ML IV SCH (00:59)
[2017-07-30] MEDS: Ketorolac 30 MG/ML SDV IVPUSH SCH ×2 (01:45→07:58)
[2017-07-30] MEDS: Acetaminophen/oxyCODONE 325-5 MG Tab PO PRN ×3 (04:34→13:10)
[2017-07-30] MEDS: Ondansetron 4 MG/2 ML SDV IVPUSH SCH ×2 (05:37→12:12)
[2017-07-30] MEDS: Pantoprazole 40 MG Vial IVPUSH SCH (07:59)
--- NOTE | 2017-07-30 08:07 | PCM.SURGPN ---
- General Info Date of Service: 07/30/17 Date of Surgery/Procedure: 07/29/17 POD#: 1 Functional Status: Reports: Pain Controlled, Tolerating Diet, Urinating - Review of Systems General: Reports: No Symptoms Pulmonary: Reports: No Symptoms Cardiovascular: Reports: No Symptoms Gastrointestinal: Reports: No Symptoms Systems Review Comment:: pt resting comfortably in bed pain better controlled with percocet 5/325 able to void on his own early this AM needed repeat straight cath around 2300 last night has not been OOB with walker is not sure he will be able to afford his post-op pain medications is planning on driving to [place] tomorrow -advised on frequent stops for ambulation no other specific concerns - Patient Data Vitals - Most Recent: Last Vital Signs Temp 96.3 F 07/30/17 07:41 Pulse 120 H 07/30/17 07:41 Resp 14 07/30/17 07:41 BP 133/69 07/30/17 07:41 Pulse Ox 97 07/30/17 07:41 Weight - Most Recent: 127.006 kg I&O - Last 24 Hours: Intake & Output 07/29/17 07/30/17 07/30/17 22:59 06:59 14:59 Intake Total 1903 950 Output Total 1500 1250 Balance 403 -300 Med Orders - Current: Current Medications Albuterol (Proventil Neb Soln) 2.5 mg NEB Q4HRRT PRN PRN Reason: wheezing/sob Last Admin: 07/29/17 14:05 Dose: 2.5 mg Bisacodyl (Dulcolax) 10 mg RECTAL DAILY PRN PRN Reason: Constipation Docusate Sodium (Colace) 100 mg PO BID [facility] Last Admin: 07/29/17 20:57 Dose: 100 mg Fentanyl (Sublimaze) 50 mcg IVPUSH Q5M PRN PRN Reason: Pain (severe 7-10) Stop: 07/30/17 08:56 Last Admin: 07/29/17 11:16 Dose: 50 mcg Folic Acid (Folic Acid) 1 mg SUBCUT DAILY [facility] Last Admin: 07/29/17 09:28 Dose: Not Given Hydromorphone HCl (Dilaudid) 1 mg IVPUSH Q3H PRN PRN Reason: Pain Last Admin: 07/30/17 05:37 Dose: 1 mg Lactated Ringer's (Ringers, Lactated) 1,000 mls @ 125 mls/hr IV ASDIRECTED [facility] Last Admin: 07/30/17 00:59 Dose: 125 mls/hr Ketorolac Tromethamine (Toradol) 30 mg IVPUSH Q6H [facility] Last Admin: 07/30/17 07:58 Dose: 30 mg Lorazepam (Ativan) 0 mg IVPUSH Q4H PRN; Protocol PRN Reason: CIWAA Ondansetron HCl (Zofran) 4 mg IVPUSH Q6H [facility] Last Admin: 07/30/17 05:37 Dose: 4 mg Oxycodone/Acetaminophen (Percocet 325-5 Mg) 1 - 2 tab PO Q4H PRN PRN Reason: Pain Last Admin: 07/30/17 04:34 Dose: 2 tab Pantoprazole Sodium (Protonix Iv) 40 mg IVPUSH Q24H [facility] Last Admin: 07/30/17 07:59 Dose: 40 mg Polyethylene Glycol (Miralax) 17 gm PO DAILY PRN PRN Reason: Constipation Thiamine HCl (Vitamin B-1) 100 mg IV DAILY [facility] Last Admin: 07/29/17 09:29 Dose: Not Given Discontinued Medications Hydrocodone Bitart/Acetaminophen ([place] 325-10 Mg) 1 - 2 tab PO Q4H PRN PRN Reason: Pain Last Admin: 07/29/17 13:11 Dose: 2 tab Bupivacaine HCl (Sensorcaine-Mpf 0.5%) Confirm Administered Dose 10 ml .ROUTE .STK-MED ONE Stop: 07/29/17 07:23 Docusate Sodium (Colace) 100 mg PO DAILY [facility] Last Admin: 07/29/17 09:28 Dose: Not Given Fentanyl (Sublimaze) Confirm Administered Dose 100 mcg .ROUTE .STK-MED ONE Stop: 07/29/17 07:28 Fentanyl (Sublimaze) Confirm Administered Dose 250 mcg .ROUTE .STK-MED ONE Stop: 07/29/17 07:28 Fentanyl (Sublimaze) Confirm Administered Dose 100 mcg .ROUTE .STK-MED ONE Stop: 07/29/17 09:24 Glycopyrrolate (Robinul) Confirm Administered Dose 0.6 mg .ROUTE .STK-MED ONE Stop: 07/29/17 09:27 Hydromorphone HCl (Dilaudid) Confirm Administered Dose 2 mg .ROUTE .STK-MED ONE Stop: 07/29/17 07:37 Hydromorphone HCl (Dilaudid) 0 mg IVPUSH ONETIME ONE Stop: 07/29/17 08:57 Last Admin: 07/29/17 09:28 Dose: Not Given Sodium Chloride (Normal Saline) 1,000 mls @ 999 mls/hr IV .Bolus ONE Stop: 07/28/17 02:49 Last Admin: 07/28/17 01:56 Dose: 999 mls/hr Multivitamins/Minerals 10 ml/Thiamine HCl 100 mg/ Folic Acid 1 mg/ Sodium Chloride 1,011.2 mls @ 999 mls/hr IV ONETIME ONE Stop: 07/28/17 03:07 Last Admin: 07/28/17 02:24 Dose: 999 mls/hr Sodium Chloride (Normal Saline) 1,000 mls @ 999 mls/hr IV .Bolus ONE Stop: 07/28/17 03:24 Last Admin: 07/28/17 03:43 Dose: Not Given Cefazolin Sodium/Dextrose 2 gm (/ Premix) 50 mls @ 100 mls/hr IV ONETIME ONE Stop: 07/29/17 08:46 Last Admin: 07/29/17 09:27 Dose: Not Given Cefazolin Sodium/Dextrose 2 gm (/ Premix) 50 mls @ 100 mls/hr IV Q8H [facility] Stop: 07/30/17 00:29 Last Admin: 07/29/17 23:17 Dose: 100 mls/hr Ketorolac Tromethamine (Toradol) Confirm Administered Dose 30 mg .ROUTE .STK- MED ONE Stop: 07/29/17 09:27 Lidocaine (Xylocaine-Mpf 2%) Confirm Administered Dose 10 ml .ROUTE .STK-MED ONE Stop: 07/29/17 07:27 Midazolam HCl (Versed 1 Mg/Ml) Confirm Administered Dose 2 mg .ROUTE .STK-MED ONE Stop: 07/29/17 07:28 Morphine Sulfate (Morphine) 2 mg IVPUSH ONETIME ONE Stop: 07/28/17 01:52 Last Admin: 07/28/17 01:56 Dose: 2 mg Naloxone HCl (Narcan) Confirm Administered Dose 0.4 mg .ROUTE .STK-MED ONE Stop: 07/29/17 11:32 Neostigmine Methylsulfate (Neostigmine) Confirm Administered Dose 5 mg .ROUTE .STK-MED ONE Stop: 07/29/17 09:27 Ondansetron HCl (Zofran) 4 mg IVPUSH Q6H [facility] Last Admin: 07/28/17 18:14 Dose: 4 mg Ondansetron HCl (Zofran) Confirm Administered Dose 8 mg .ROUTE .STK-MED ONE Stop: 07/29/17 09:27 Propofol (Diprivan 20 Ml) Confirm Administered Dose 400 mg .ROUTE .STK-MED ONE Stop: 07/29/17 07:28 Propofol (Diprivan 20 Ml) Confirm Administered Dose 200 mg .ROUTE .STK-MED ONE Stop: 07/29/17 07:31 Rocuronium [place] (Zemuron) Confirm Administered Dose 100 mg .ROUTE .STK-MED ONE Stop: 07/29/17 09:26 Rocuronium [place] (Zemuron) Confirm Administered Dose 100 mg .ROUTE .STK-MED ONE Stop: 07/29/17 09:26 - Exam Wound/Incisions: Dressing Dry and Intact General: Alert, Oriented Extremities: Other (exam LLE splint/dressing intact. no drainage. ehl 2-3/5 (pt states this is his baseline). cap refill <2 sec) Physical Findings Comment:: vss, afeb - Problem List Review Problem List Initiated/Reviewed/Updated: Yes - My Orders Last 24 Hours: Active Orders 24 hr Category Date Time Status Communication Order [RC] ROUTINE Care 07/29/17 23:11 Active Insert Urinary Catheter [OM.PC] Q24H Care 07/29/17 16:30 Ordered Insert Urinary Catheter [OM.PC] Q24H Care 07/29/17 23:15 Ordered Insert Urinary Catheter [OM.PC] Q24H Care 07/30/17 23:15 Ordered RT Aerosol Therapy [RC] ASDIRECTED Care 07/29/17 13:42 Active Bronze Plater Discontinue [Cardiac Monitoring Care 07/29/17 08:46 Active Discontinue] [RC] Click to Edit Urinary Catheter Assessment [RC] ASDIRECTED Care 07/29/17 16:25 Active Urinary Catheter Assessment [RC] ASDIRECTED Care 07/29/17 23:10 Active Urinary Catheter Assessment [RC] ASDIRECTED Care 07/30/17 07:48 Active PT Evaluation and Treatment [CONS] Routine Cons 07/29/17 10:12 Active Acetaminophen/oxyCODONE [Percocet 325-5 MG] Med 07/29/17 16:08 Active 1 - 2 tab PO Q4H PRN Albuterol [Proventil Neb Soln] Med 07/29/17 13:42 Active 2.5 mg NEB Q4HRRT PRN Ketorolac [Toradol] Med 07/29/17 13:45 Active 30 mg IVPUSH Q6H fentaNYL [Sublimaze] Med 07/29/17 08:56 Active 50 mcg IVPUSH Q5M PRN Medication Orders Albuterol (Proventil Neb Soln) 2.5 mg NEB Q4HRRT PRN PRN Reason: wheezing/sob Last Admin: 07/29/17 14:05 Dose: 2.5 mg Bisacodyl (Dulcolax) 10 mg RECTAL DAILY PRN PRN Reason: Constipation Docusate Sodium (Colace) 100 mg PO BID [facility] Last Admin: 07/29/17 20:57 Dose: 100 mg Admin: 07/29/17 09:28 Dose: Admin: 07/28/17 21:16 Dose: 100 mg Admin: 07/28/17 08:50 Dose: 100 mg Fentanyl (Sublimaze) 50 mcg IVPUSH Q5M PRN PRN Reason: Pain (severe 7-10) Stop: 07/30/17 08:56 Last Admin: 07/29/17 11:16 Dose: 50 mcg Admin: 07/29/17 11:10 Dose: 50 mcg Folic Acid (Folic Acid) 1 mg SUBCUT DAILY [facility] Last Admin: 07/29/17 09:28 Dose: Admin: 07/28/17 08:54 Dose: 1 mg Hydromorphone HCl (Dilaudid) 1 mg IVPUSH Q3H PRN PRN Reason: Pain Last Admin: 07/30/17 05:37 Dose: 1 mg Admin: 07/30/17 00:33 Dose: 1 mg Admin: 07/29/17 20:57 Dose: 1 mg Admin: 07/29/17 16:49 Dose: 1 mg Admin: 07/29/17 13:45 Dose: 1 mg Admin: 07/29/17 11:43 Dose: 1 mg Admin: 07/29/17 04:14 Dose: 1 mg Admin: 07/29/17 00:45 Dose: 1 mg Admin: 07/28/17 21:16 Dose: 1 mg Admin: 07/28/17 14:38 Dose: 1 mg Admin: 07/28/17 11:11 Dose: 1 mg Admin: 07/28/17 06:51 Dose: 1 mg Admin: 07/28/17 03:38 Dose: 1 mg Lactated Ringer's (Ringers, Lactated) 1,000 mls @ 125 mls/hr IV ASDIRECTED [facility] Last Admin: 07/30/17 00:59 Dose: 125 mls/hr Infusion: 07/30/17 00:52 Dose: 125 mls/hr Admin: 07/29/17 16:52 Dose: 125 mls/hr Infusion: 07/29/17 13:09 Dose: 125 mls/hr Admin: 07/29/17 05:09 Dose: 125 mls/hr Infusion: 07/29/17 05:09 Dose: 125 mls/hr Admin: 07/28/17 21:17 Dose: 125 mls/hr Infusion: 07/28/17 21:08 Dose: 125 mls/hr Admin: 07/28/17 13:08 Dose: 125 mls/hr Infusion: 07/28/17 11:38 Dose: 125 mls/hr Admin: 07/28/17 03:38 Dose: 125 mls/hr Ketorolac Tromethamine (Toradol) 30 mg IVPUSH Q6H [facility] Last Admin: 07/30/17 07:58 Dose: 30 mg Admin: 07/30/17 01:45 Dose: 30 mg Admin: 07/29/17 18:51 Dose: 30 mg Admin: 07/29/17 13:54 Dose: 30 mg Lorazepam (Ativan) 0 mg IVPUSH Q4H PRN; Protocol PRN Reason: CIWAA Ondansetron HCl (Zofran) 4 mg IVPUSH Q6H [facility] Last Admin: 07/30/17 05:37 Dose: 4 mg Admin: 07/29/17 23:17 Dose: 4 mg Admin: 07/29/17 18:51 Dose: 4 mg Admin: 07/29/17 11:56 Dose: Admin: 07/29/17 05:15 Dose: 4 mg Admin: 07/29/17 00:07 Dose: 4 mg Oxycodone/Acetaminophen (Percocet 325-5 Mg) 1 - 2 tab PO Q4H PRN PRN Reason: Pain Last Admin: 07/30/17 04:34 Dose: 2 tab Admin: 07/29/17 23:15 Dose: 2 tab Admin: 07/29/17 16:21 Dose: 2 tab Pantoprazole Sodium (Protonix Iv) 40 mg IVPUSH Q24H [facility] Last Admin: 07/30/17 07:59 Dose: 40 mg Admin: 07/29/17 09:25 Dose: Admin: 07/28/17 08:47 Dose: 40 mg Polyethylene Glycol (Miralax) 17 gm PO DAILY PRN PRN Reason: Constipation Thiamine HCl (Vitamin B-1) 100 mg IV DAILY [facility] Last Admin: 07/29/17 09:29 Dose: Admin: 07/28/17 08:51 Dose: 100 mg - Assessment Assessment (Free Text/Narrative):: POD#1 CR IM rodding L tibia L distal fibula fx - Plan Plan (Free Text/Narrative):: continue pain management advised pt on frequent ambulation if he is driving to [place] discussed NWB LLE restrictions keep splint clean/dry until follow-up anticipate d/ch to home after he mobilizes with PT/FWW
[2017-07-30] MEDS: Thiamine 200 MG/2 ML MDV IV SCH (09:03)
[2017-07-30] MEDS: Docusate Sodium 100 MG Cap PO SCH (09:08)
[2017-07-30] MEDS: Folic Acid 50 MG/10 ML MDV SUBCUT SCH (09:09)
--- NOTE | 2017-07-30 10:28 | PCM.CONSN ---
- General Info Date of Service: 07/30/17 Admission Dx/Problem (Free Text): Admission Diagnosis/Problem Admission Diagnosis/Problem Fracture of distal end of tibia with fibula Subjective Update: Feeling good today, voiding on his own this morning. No chest pain or shortness of breath. Very eager to be discharged today. No tremors noted. Functional Status: Reports: Pain Controlled, Tolerating Diet, Urinating - Review of Systems HEENT: Reports: No Symptoms Pulmonary: Reports: No Symptoms. Denies: Shortness of Breath Cardiovascular: Reports: No Symptoms. Denies: Chest Pain, Palpitations, Orthopnea, Edema Gastrointestinal: Reports: No Symptoms. Denies: Abdominal Pain, Nausea, Vomiting Genitourinary: Reports: No Symptoms. Denies: Dysuria, Frequency, Burning, Retention, Flank Pain Musculoskeletal: Reports: Leg Pain (L leg pain tolerable now. ) Skin: Reports: No Symptoms Neurological: Reports: No Symptoms Psychiatric: Reports: No Symptoms - Patient Data Vitals - Most Recent: Last Vital Signs Temp 96.3 F 07/30/17 07:41 Pulse 120 H 07/30/17 07:41 Resp 14 07/30/17 07:41 BP 133/69 07/30/17 07:41 Pulse Ox 97 07/30/17 07:41 Weight - Most Recent: 127.006 kg I&O - Last 24 Hours: Intake & Output 07/29/17 07/30/17 07/30/17 22:59 06:59 14:59 Intake Total 1903 950 Output Total 1500 1250 Balance 403 -300 Med Orders - Current: Current Medications Albuterol (Proventil Neb Soln) 2.5 mg NEB Q4HRRT PRN PRN Reason: wheezing/sob Last Admin: 07/29/17 14:05 Dose: 2.5 mg Bisacodyl (Dulcolax) 10 mg RECTAL DAILY PRN PRN Reason: Constipation Docusate Sodium (Colace) 100 mg PO BID [facility] Last Admin: 07/30/17 09:08 Dose: 100 mg Folic Acid (Folic Acid) 1 mg SUBCUT DAILY [facility] Last Admin: 07/30/17 09:09 Dose: 1 mg Hydromorphone HCl (Dilaudid) 1 mg IVPUSH Q3H PRN PRN Reason: Pain Last Admin: 07/30/17 05:37 Dose: 1 mg Lactated Ringer's (Ringers, Lactated) 1,000 mls @ 125 mls/hr IV ASDIRECTED [facility] Last Admin: 07/30/17 00:59 Dose: 125 mls/hr Ketorolac Tromethamine (Toradol) 30 mg IVPUSH Q6H [facility] Last Admin: 07/30/17 07:58 Dose: 30 mg Lorazepam (Ativan) 0 mg IVPUSH Q4H PRN; Protocol PRN Reason: CIWAA Ondansetron HCl (Zofran) 4 mg IVPUSH Q6H [facility] Last Admin: 07/30/17 05:37 Dose: 4 mg Oxycodone/Acetaminophen (Percocet 325-5 Mg) 1 - 2 tab PO Q4H PRN PRN Reason: Pain Last Admin: 07/30/17 09:06 Dose: 2 tab Pantoprazole Sodium (Protonix Iv) 40 mg IVPUSH Q24H [facility] Last Admin: 07/30/17 07:59 Dose: 40 mg Polyethylene Glycol (Miralax) 17 gm PO DAILY PRN PRN Reason: Constipation Thiamine HCl (Vitamin B-1) 100 mg IV DAILY [facility] Last Admin: 07/30/17 09:03 Dose: 100 mg Discontinued Medications Hydrocodone Bitart/Acetaminophen ([place] 325-10 Mg) 1 - 2 tab PO Q4H PRN PRN Reason: Pain Last Admin: 07/29/17 13:11 Dose: 2 tab Bupivacaine HCl (Sensorcaine-Mpf 0.5%) Confirm Administered Dose 10 ml .ROUTE .STK-MED ONE Stop: 07/29/17 07:23 Docusate Sodium (Colace) 100 mg PO DAILY [facility] Last Admin: 07/29/17 09:28 Dose: Not Given Fentanyl (Sublimaze) Confirm Administered Dose 100 mcg .ROUTE .STK-MED ONE Stop: 07/29/17 07:28 Fentanyl (Sublimaze) Confirm Administered Dose 250 mcg .ROUTE .STK-MED ONE Stop: 07/29/17 07:28 Fentanyl (Sublimaze) 50 mcg IVPUSH Q5M PRN PRN Reason: Pain (severe 7-10) Stop: 07/30/17 08:56 Last Admin: 07/29/17 11:16 Dose: 50 mcg Fentanyl (Sublimaze) Confirm Administered Dose 100 mcg .ROUTE .STK-MED ONE Stop: 07/29/17 09:24 Glycopyrrolate (Robinul) Confirm Administered Dose 0.6 mg .ROUTE .STK-MED ONE Stop: 07/29/17 09:27 Hydromorphone HCl (Dilaudid) Confirm Administered Dose 2 mg .ROUTE .STK-MED ONE Stop: 07/29/17 07:37 Hydromorphone HCl (Dilaudid) 0 mg IVPUSH ONETIME ONE Stop: 07/29/17 08:57 Last Admin: 07/29/17 09:28 Dose: Not Given Sodium Chloride (Normal Saline) 1,000 mls @ 999 mls/hr IV .Bolus ONE Stop: 07/28/17 02:49 Last Admin: 07/28/17 01:56 Dose: 999 mls/hr Multivitamins/Minerals 10 ml/Thiamine HCl 100 mg/ Folic Acid 1 mg/ Sodium Chloride 1,011.2 mls @ 999 mls/hr IV ONETIME ONE Stop: 07/28/17 03:07 Last Admin: 07/28/17 02:24 Dose: 999 mls/hr Sodium Chloride (Normal Saline) 1,000 mls @ 999 mls/hr IV .Bolus ONE Stop: 07/28/17 03:24 Last Admin: 07/28/17 03:43 Dose: Not Given Cefazolin Sodium/Dextrose 2 gm (/ Premix) 50 mls @ 100 mls/hr IV ONETIME ONE Stop: 07/29/17 08:46 Last Admin: 07/29/17 09:27 Dose: Not Given Cefazolin Sodium/Dextrose 2 gm (/ Premix) 50 mls @ 100 mls/hr IV Q8H [facility] Stop: 07/30/17 00:29 Last Admin: 07/29/17 23:17 Dose: 100 mls/hr Ketorolac Tromethamine (Toradol) Confirm Administered Dose 30 mg .ROUTE .STK- MED ONE Stop: 07/29/17 09:27 Lidocaine (Xylocaine-Mpf 2%) Confirm Administered Dose 10 ml .ROUTE .STK-MED ONE Stop: 07/29/17 07:27 Midazolam HCl (Versed 1 Mg/Ml) Confirm Administered Dose 2 mg .ROUTE .STK-MED ONE Stop: 07/29/17 07:28 Morphine Sulfate (Morphine) 2 mg IVPUSH ONETIME ONE Stop: 07/28/17 01:52 Last Admin: 07/28/17 01:56 Dose: 2 mg Naloxone HCl (Narcan) Confirm Administered Dose 0.4 mg .ROUTE .STK-MED ONE Stop: 07/29/17 11:32 Neostigmine Methylsulfate (Neostigmine) Confirm Administered Dose 5 mg .ROUTE .STK-MED ONE Stop: 07/29/17 09:27 Ondansetron HCl (Zofran) 4 mg IVPUSH Q6H [facility] Last Admin: 07/28/17 18:14 Dose: 4 mg Ondansetron HCl (Zofran) Confirm Administered Dose 8 mg .ROUTE .STK-MED ONE Stop: 07/29/17 09:27 Propofol (Diprivan 20 Ml) Confirm Administered Dose 400 mg .ROUTE .STK-MED ONE Stop: 07/29/17 07:28 Propofol (Diprivan 20 Ml) Confirm Administered Dose 200 mg .ROUTE .STK-MED ONE Stop: 07/29/17 07:31 Rocuronium [place] (Zemuron) Confirm Administered Dose 100 mg .ROUTE .STK-MED ONE Stop: 07/29/17 09:26 Rocuronium [place] (Zemuron) Confirm Administered Dose 100 mg .ROUTE .STK-MED ONE Stop: 07/29/17 09:26 - Exam General: Alert, Oriented, Cooperative, No Acute Distress Lungs: Clear to Auscultation, Normal Respiratory Effort Cardiovascular: Regular Rate, Regular Rhythm, Tachycardia (intermittently 90- 100s) Extremities: Normal Range of Motion, No Pedal Edema Wound/Incisions: Dressing Dry and Intact (Splint to L lower leg intact, CMS intact. ) Psy/Mental Status: Alert, Normal Affect, Normal Mood Consult PN Assessment/Plan Procedures: Procedures APPLICATION LOWER LEG SPLINT (09/09/16) ASSAY OF LIPASE (05/18/15) ASSAY THYROID STIM HORMONE (02/28/16) CHEST X-RAY 1 VIEW FRONTAL (05/18/15) COMPLETE CBC W/AUTO DIFF WBC (02/28/16) COMPREHEN METABOLIC PANEL (02/28/16) CT LUMBAR SPINE W/O DYE (01/02/16) ELECTROCARDIOGRAM TRACING (05/18/15) EMERGENCY DEPT VISIT (09/09/16) EMERGENCY DEPT VISIT (05/18/15) EMERGENCY DEPT VISIT (08/28/13) HYDRATION IV INFUSION INIT (05/18/15) ROUTINE VENIPUNCTURE (02/28/16) THER/PROPH/DIAG INJ SC/IM (08/28/13) URINALYSIS AUTO W/SCOPE (05/18/15) X-RAY EXAM OF ANKLE (09/09/16) X-RAY EXAM OF FOOT (09/09/16) X-RAY EXAM OF PELVIS (05/18/15) X-RAY EXAM OF SPINE 1 VIEW (05/18/15) (1) Fracture of distal end of tibia with fibula SNOMED Code(s): 118838875, 405378822 Code(s): S82.309A - UNSP FRACTURE OF LOWER END OF UNSP TIBIA, INIT FOR CLOS FX; S82.839A - OTH FRACTURE OF UPPER AND LOWER END OF UNSP FIBULA, INIT Current Visit: Yes Qualifiers: Encounter type: initial encounter Fracture type: closed Laterality: left Qualified Code(s): S82.302A - Unspecified fracture of lower end of left tibia , initial encounter for closed fracture; S82.832A - Other fracture of upper and lower end of left fibula, initial encounter for closed fracture (2) Hx of spinal cord injury SNOMED Code(s): 12077054929370 Code(s): Z87.828 - PERSONAL HISTORY OF OTH (HEALED) PHYSICAL INJURY AND TRAUMA Current Visit: Yes (3) Fusion of lumbar spine SNOMED Code(s): 562053656 Code(s): M43.26 - FUSION OF SPINE, LUMBAR REGION Current Visit: Yes (4) Alcohol intoxication SNOMED Code(s): 24748911 Code(s): F10.929 - ALCOHOL USE, UNSPECIFIED WITH INTOXICATION, UNSPECIFIED Current Visit: Yes (5) Sinus tachycardia SNOMED Code(s): 86185893 Code(s): R00.0 - TACHYCARDIA, UNSPECIFIED Current Visit: Yes (6) Alcohol abuse SNOMED Code(s): 55456446 Code(s): F10.10 - ALCOHOL ABUSE, UNCOMPLICATED Current Visit: Yes (7) Tobacco abuse SNOMED Code(s): 501267823 Code(s): Z72.0 - TOBACCO USE Current Visit: Yes Problem List Initiated/Reviewed/Updated: Yes My Orders Last 24 Hours: My Active Orders 07/29/17 13:42 RT Aerosol Therapy [RC] ASDIRECTED Albuterol [Proventil Neb Soln] 2.5 mg NEB Q4HRRT PRN Plan: This 22 year old male admitted with L tib/fib fracture with Dr Becerra. Hospitalist service consulted due to ETOH abuse and sinus tachycardia 1. Tib/Fib fracture: Management per Ortho. Tolerating well, hoping for DC home today. 2. Alcohol abuse: Highly encourage sobriety. He verbalizes that he is going to stop. 3. Tobacco abuse:Encouarged to stop using chew, denies wanting help as of now. VTE prophylaxis: SCDs. Would recommended DVT prophylaxis when deemed appropriate by Orthopedics. Ok to discharge home from Hospitalist stand point.
[2017-07-30 11:52] VITALS: BP 123/64
--- NOTE | 2017-07-30 13:44 | DISCH ---
DATE OF DISCHARGE: 07/30/2017 PRIMARY CARE PHYSICIAN: Malia PCP ADMITTING DIAGNOSIS: Left distal 1/3rd tibia and fibula fracture. OTHER MEDICAL DIAGNOSES: 1. Alcohol abuse. 2. Tobacco abuse. 3. 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 DISCHARGE DIAGNOSES: 1. Alcohol abuse. 2. Tobacco abuse. 3. 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 BRIEF HISTORY: Wellington Lopez is a 22-year-old male who sustained an injury to his left lower extremity while getting into a Lazy boy recliner while intoxicated. He complained of immediate left lower extremity pain. He does have a history of low back surgery following a fracture and had pre-existing neuropathy in the left lower extremity. X-rays were done in the Emergency Department which showed a distal 1/3rd tibia fracture. He was admitted to the hospital. The hospital service followed him throughout his hospital stay. Preoperative CT scan showed no evidence of intra-articular extension, and it was recommended that he undergo closed reduction with insertion of intramedullary adalgisa of the left tibia. On July 29, 2017, the patient underwent closed reduction with insertion of intramedullary nail of the left tibia, done by Dr. Evie Becerra. This was done under general anesthesia. Estimated blood loss was 50 mL. There was no tourniquet time. There were no known complications. Upon completion of the procedure, he was transferred to the PACU and subsequently back to his hospital room for postoperative care. Postoperatively, the patient did well. He received 2 doses of Ancef postoperatively for a total 24 hours of antibiotic coverage. His pain has been controlled with a combination of oral and IV pain medications. Physical therapy saw him postoperatively for gait training. He feels comfortable mobilizing with a wheeled walker, remaining nonweightbearing to the left lower extremity. His vital signs have been stable. He has been afebrile. His pain continues to be well controlled with pain medications. He is planning on traveling to [place] to spend time with his family. DISCHARGE MEDICATIONS: 1. Percocet 5/325. 2. Colace 100 mg. DISCHARGE INSTRUCTIONS: 1. Follow up in clinic in 10 to 14 days from the date of procedure. This appointment has been made for the patient. 2. Nonweightbearing to the left lower extremity. 3. Leave the splint in place, clean, and dry until followup in clinic. 4. If he does travel to [place], he has been recommended to ambulate every 3 to 4 hours. He verbalized understanding and agreed. For complete medication reconciliation and discharge instructions, please refer back to the patient's EHR. Should he have questions or concerns prior to followup, he has been advised to return to clinic or call. OLIVERIO CERVANTES /[id number]
== END 2017-07-30 13:15 | disposition home or self-care (01) | DRG 494 ==
LOC: MW.ED 00:49 → MW.MS 02:03 → MW.SDS 02:03 → MW.MS 02:50 → MW.ED 02:51 → MW.MS 12:32 → MW.SDS 12:32
PROVIDERS: ADMIT Orthopaedic Surgery; ATTEND Orthopaedic Surgery
PROC: 0QSK34Z Reposition Left Fibula with Internal Fixation Device, Percutaneous Approach (ICD-10-PCS; principal; 2017-07-29)
PROC: 0QSH34Z Reposition Left Tibia with Internal Fixation Device, Percutaneous Approach (ICD-10-PCS; 2017-07-29)
DX: S82.302A Unspecified fracture of lower end of left tibia, initial encounter for closed fracture (principal); S82.832A Other fracture of upper and lower end of left fibula, initial encounter for closed fracture; W18.39XA Other fall on same level, initial encounter; Y93.89 Activity, other specified; Y92.019 Unspecified place in single-family (private) house as the place of occurrence of the external cause; F10.129 Alcohol abuse with intoxication, unspecified; Y90.8 Blood alcohol level of 240 mg/100 ml or more; R00.0 Tachycardia, unspecified; G57.92 Unspecified mononeuropathy of left lower limb; I10 Essential (primary) hypertension; M54.89 Other dorsalgia; G89.29 Other chronic pain; K21.9 Gastro-esophageal reflux disease without esophagitis; M43.26 Fusion of spine, lumbar region; F17.200 Nicotine dependence, unspecified, uncomplicated; Z88.8 Allergy status to other drugs, medicaments and biological substances
CPT/HCPCS: 36415; 51701; 71045; 71045-26; 73590-26-LT; 73590-LT; 73600-26-LT; 73600-LT; 73700-26-LT; 73700-LT; 76001; 76001-26; 80053; 80305; 81001; 83735; 84484; 85025; 85610; 93005; 94640; 96361; 96374; 96375; 97161-GP; 99285-25; A9270-GY; C1713; C1769; C9113; G0480; J0690; J1170; J1885; J2250; J2270; J2405; J2704; J3010; J3411; J7040; J7120

== ENCOUNTER 2019-05-09 09:15 | Emergency (ER) | payer MEDICARE ==
[2019-05-09 09:28] VITALS: BP 138/85; PULSE 79
--- NOTE | 2019-05-09 09:40 | EDM.PDOC ---
ED HPI GENERAL MEDICAL PROBLEM - General Chief Complaint: ENT Problem Stated Complaint: PAIN LT OF FACE Time Seen by Provider: 05/09/19 09:36 Source of Information: Reports: Patient History Limitations: Reports: No Limitations - History of Present Illness INITIAL COMMENTS - FREE TEXT/NARRATIVE: This 24-year-old male the emergency room with a chief complaint of tooth pain this morning. Patient states that he has pain and swelling to his face starting today. Patient has no allergies except epinephrine. Onset: Today Duration: Hour(s):, Getting Worse Location: Reports: Face Quality: Reports: Throbbing Severity: Moderate Improves with: Reports: None Worsens with: Reports: None Associated Symptoms: Reports: Other (Swelling to the face) Treatments [employer]: Reports: Acetaminophen left lower jaw Pain Score (Numeric/FACES): 10 - Related Data Allergies Allergy/AdvReac Type Severity Reaction Status Date / Time epinephrine Allergy Facial Verified 05/09/19 09:25 Swelling Home Meds: Home Meds Cephalexin [Keflex] 500 mg PO Q8HR #30 capsule 05/09/19 [Rx] Ibuprofen [Motrin] 600 mg PO Q8H PRN #30 tab 05/09/19 [Rx] Past Medical History - Past Health History Medical/Surgical History: Denies Medical/Surgical History HEENT History: Reports: None Cardiovascular History: Reports: Hypertension Respiratory History: Reports: None Gastrointestinal History: Reports: Chronic Constipation Genitourinary History: Reports: None Musculoskeletal History: Reports: Back Pain, Chronic, Other (See Below) Other Musculoskeletal History: L 1 burst fracture 2016 with epidural hematoma L1 -L3. residual lower leg weakness and numbness. Neurological History: Reports: Neuropathy, Peripheral Psychiatric History: Reports: Addiction Endocrine/Metabolic History: Reports: Obesity/BMI 30+ Hematologic History: Reports: None Immunologic History: Reports: None Oncologic (Cancer) History: Reports: None Dermatologic History: Reports: None - Infectious Disease History Infectious Disease History: Reports: Chicken Pox - Past Surgical History HEENT Surgical History: Reports: Other (See Below) Neurological Surgical History: Reports: Lumbar Spine Social & Family History - Family History Family Medical History: Noncontributory - Tobacco Use Smoking Status *Q: Current Every Day Smoker Years of Tobacco use: 1 Packs/Tins Daily: 0.5 - Caffeine Use Caffeine Use: Reports: Coffee - Recreational Drug Use Recreational Drug Use: Yes Recreational Drug Type: Reports: Marijuana/Hashish Recreational Drug Use Frequency: Daily - Living Situation & Occupation Occupation: Disabled ED ROS ENT - Review of Systems Review Of Systems: See Below Constitutional: Reports: No Symptoms HEENT: Reports: Dental Pain Respiratory: Reports: No Symptoms Cardiovascular: Reports: No Symptoms Endocrine: Reports: No Symptoms GI/Abdominal: Reports: No Symptoms : Reports: No Symptoms Musculoskeletal: Reports: No Symptoms (History of disability walks with a cane) , Other Skin: Reports: No Symptoms Neurological: Reports: No Symptoms Psychiatric: Reports: No Symptoms Hematologic/Lymphatic: Reports: No Symptoms Immunologic: Reports: No Symptoms ED EXAM, ENT - Physical Exam Exam: See Below Text/Narrative:: This 24-year-old male presents the emergency room with a chief complaint of swelling to the face/left lower side and dental pain. Patient states he has all of his teeth and has pain and swelling. Patient is scheduled to see a dentist later today but states that they are only going to do x-rays without medications or antibiotics. Exam: Tooth #22 is decayed with a cavitary lesion which appears to be infected. Patient has swelling to the lower aspect of his face. Patient has no fluctuance or redness. Patient has normal S1-S2 Patient's lungs are clear Assessment: Infected tooth/dental decay/with possible abscess, early Plan: Patient will receive Keflex in the emergency room and injection of Toradol in the emergency room and a prescription for Motrin and Keflex to go home with. Patient instructed to chew he follows up with his dentist today. Exam Limited By: No Limitations General Appearance: Alert, WD/WN, No Apparent Distress Eye Exam: Bilateral Eye: Normal Fundi, Normal Inspection Ears: Normal External Exam Nose: Normal Inspection Mouth/Throat: Normal Inspection, Dental Abcess, Dental Pain, Dental Tenderness, Gum Swelling (tooth #22) Head: Atraumatic, Normocephalic Neck: Normal Inspection, Supple, Non-Tender Respiratory/Chest: No Respiratory Distress, Lungs Clear, Normal Breath Sounds Cardiovascular: Normal Peripheral Pulses GI/Abdominal: Normal Bowel Sounds, Soft, Non-Tender Course - Vital Signs Text/Narrative:: This 44-year-old male presents the emergency room with an infected tooth approximately #22. This patient will be given antibiotic pain medication. Patient is going to be discharged home after Toradol injection. Instructed to follow-up with her primary care physician. Patient has an appointment with a dentist today also. Last Recorded V/S: Last Vital Signs Temp 96.5 F L 05/09/19 09:26 Pulse 79 05/09/19 09:26 Resp 17 05/09/19 09:26 BP 138/85 05/09/19 09:26 Pulse Ox 97 05/09/19 09:26 - Orders/Labs/Meds Meds: Medications Discontinued Medications Generic Name Dose Route Start Last Admin Trade Name Freq PRN Reason Stop Dose Admin Cephalexin 500 mg 05/09/19 09:55 Keflex PO 05/09/19 09:56 ONETIME ONE Ketorolac Tromethamine 30 mg 05/09/19 09:55 Toradol IM 05/09/19 09:56 ONETIME ONE Departure - Departure Time of Disposition: 09:52 Disposition: Home, Self-Care 01 Condition: Good Clinical Impression: Dental caries extending into dentin, Dental infection - Discharge Information Prescriptions: Cephalexin [Keflex] 500 mg PO Q8HR #30 capsule Ibuprofen [Motrin] 600 mg PO Q8H PRN #30 tab PRN Reason: Pain (Moderate 4-6) Instructions: Dental Abscess, [id number], Diet and Dental Disease Referrals: Van Doe MD [Primary Care Provider] - Forms: ED Department Discharge Additional Instructions: The patient is to take his antibiotics as prescribed. The patient is to take his pain medicine as prescribed. Make sure you follow-up with your dentist. Return for any problems Sepsis Event Note - Evaluation Sepsis Screening Result: No Definite Risk - Focused Exam Vital Signs: Vital Signs Temp Pulse Resp BP Pulse Ox 05/09/19 09:26 96.5 F L 79 17 138/85 97 Date Exam was Performed: 05/09/19 Time Exam was Performed: 10:01
[2019-05-09] MEDS ORDERED: Ketorolac 30 MG/ML SDV IM ONE (09:55)
[2019-05-09] MEDS ORDERED: Cephalexin 500 MG Cap PO ONE (09:55)
== END 2019-05-09 10:21 | disposition home or self-care (01) ==
LOC: MW.ED 09:15
DX: K02.9 Dental caries, unspecified (principal); K04.7 Periapical abscess without sinus; E11.42 Type 2 diabetes mellitus with diabetic polyneuropathy; F17.210 Nicotine dependence, cigarettes, uncomplicated; I10 Essential (primary) hypertension; E66.9 Obesity, unspecified; Z88.8 Allergy status to other drugs, medicaments and biological substances; Z68.30 Body mass index [BMI] 30.0-30.9, adult
CPT/HCPCS: 96372; 99282; A9270; J1885

== ENCOUNTER 2021-09-04 10:43 | Day surgery (SDC) | payer MEDICARE ==
[~2021-09-04 10:43] MED LIST: Lactated Ringers 1,000 ML IV SCH; Lidocaine 2% 5 ML SDV ONE; Propofol 200 MG/20 ML SDV ONE; fentaNYL 100 MCG/2 ML SDV ONE
[2021-09-04] MEDS ORDERED: Glycopyrrolate 0.2 MG/ML SDV ONE (12:51)
[2021-09-04] MEDS ORDERED: Propofol 200 MG/20 ML SDV ONE (12:58)
[2021-09-04 13:31] VITALS: BP 121/57; PULSE 80
== END 2021-09-04 13:45 | disposition home or self-care (01) ==
LOC: MW.SDS 10:43
PROVIDERS: ATTEND Surgery
DX: R11.10 Vomiting, unspecified (principal); K92.0 Hematemesis; F17.210 Nicotine dependence, cigarettes, uncomplicated; F41.9 Anxiety disorder, unspecified; F32.A Depression, unspecified; G62.9 Polyneuropathy, unspecified; I10 Essential (primary) hypertension; E66.9 Obesity, unspecified; Z79.899 Other long term (current) drug therapy; Z88.8 Allergy status to other drugs, medicaments and biological substances; Z98.890 Other specified postprocedural states
CPT/HCPCS: 43239; J2704; J3010; J3490; J7120; 00731

== ENCOUNTER 2021-11-24 05:41 | Emergency (ER) | payer MEDICARE ==
[2021-11-24 06:03] VITALS: BP 144/102; PULSE 66
== END 2021-11-24 07:09 | disposition home or self-care (01) ==
LOC: MW.ED 05:41
DX: R07.89 Other chest pain (principal); F15.10 Other stimulant abuse, uncomplicated; E66.9 Obesity, unspecified; Z68.28 Body mass index [BMI] 28.0-28.9, adult; Z72.0 Tobacco use; Z88.8 Allergy status to other drugs, medicaments and biological substances
CPT/HCPCS: 71046; 71046-26; 93010; 99283; 99284

== ENCOUNTER 2022-10-04 19:59 | Emergency (ER) | payer MEDICARE ==
[2022-10-04] MEDS ORDERED: Sodium Chloride 0.9% 2.5 ML Syringe FLUSH PRN (20:01)
[2022-10-04] MEDS ORDERED: Sodium Chloride 0.9% 10 ML Syringe FLUSH PRN (20:01)
[2022-10-04] MEDS ORDERED: LORazepam 2 MG/ML SDV IVPUSH ONE ×2 (20:05→20:25)
[2022-10-04] MEDS ORDERED: Ondansetron 4 MG/2 ML SDV IVPUSH ONE (20:05)
[2022-10-04] MEDS ORDERED: Sodium Chloride 0.9% 1,000 ML IV ONE (20:05)
[2022-10-04 20:14] LABS: BASOPHILS PERCENT AUTO 0.3 % (0.0-1.5); EOSINOPHILS ABSOLUTE AUTO 0.2 K/uL (0.0-0.7); EOSINOPHILS PERCENT AUTO 1.9 % (0.0-7.0); HEMOGLOBIN 14.2 g/dL (13.0-17.0); LYMPHOCYTES ABSOLUTE AUTO 4.1 K/uL (0.6-2.4); LYMPHOCYTES PERCENT AUTO 33.2 % (16.0-40.0); MEAN CORPUSCULAR HEMOGLOBIN 29.5 pg (27.0-32.0); MEAN CORPUSCULAR HGB CONC 34.6 g/dL (31.0-37.0); MEAN CORPUSCULAR VOLUME 85.1 fL (80.0-98.0); MONOCYTES PERCENT AUTO 8.1 % (0.0-15.0); NEUTROPHILS ABSOLUTE AUTO 6.9 K/uL (1.4-5.7); NEUTROPHILS PERCENT AUTO 56.5 % (48.0-80.0); NRBC ABSOLUTE 0 K/uL; PLATELET COUNT,PLT 449 K/uL (150-400); RED BLOOD CELL COUNT 4.82 M/uL (4.50-5.90); WHITE BLOOD CELL COUNT,WBC 12.22 K/uL (4.0-11.0)
[2022-10-04] MEDS ORDERED: Adenosine 6 MG/2 ML SDV IVPUSH ONE ×2 (20:22)
[2022-10-04 20:45] LABS: A/G RATIO 1.2 (0.9-1.6); ALBUMIN 4.1 g/dL (3.4-5.0); BILIRUBIN TOTAL 0.7 mg/dL (0.2-1.0); CALCIUM 9.4 mg/dL (8.5-10.1); CARBON DIOXIDE,CO2 17.6 mmol/L (21.0-32.0); CREATININE 1.1 mg/dL (0.8-1.3); EST CRCL DRUG DOSING (CG) 121.65 mL/min; POTASSIUM,K 3.4 mmol/L (3.5-5.1); PROTEIN TOTAL,TP 7.6 g/dL (6.4-8.2)
[2022-10-04 20:50] LABS: MAGNESIUM 1.7 mg/dL (1.8-2.4)
[2022-10-04] MEDS ORDERED: Lactated Ringers 1,000 ML IV ONE (21:18)
[2022-10-04] MEDS ORDERED: Iopamidol 755 MG/ML 500 ML Multipack Bottle IVPUSH ONE (21:25)
[2022-10-04 22:48] LABS: APPEARANCE,URINE CLEAR; BILIRUBIN,URINE NEGATIVE (NEGATIVE); GLUCOSE,URINE NEGATIVE (NEGATIVE); KETONES,URINE 15 mg/dL (NEGATIVE); LEUKOCYTE ESTERASE,URINE NEGATIVE (NEGATIVE); NITRITE,URINE NEGATIVE (NEGATIVE); OCCULT BLOOD,URINE NEGATIVE (NEGATIVE); PROTEIN,URINE NEGATIVE (NEGATIVE)
[2022-10-04 22:57] LABS: AMPHETAMINES SCREEN, URINE NEGATIVE (CUTOFF=500); BARBITURATE SCREEN,URINE NEGATIVE (CUTOFF=200); BENZODIAZEPINES SCREEN,URINE PRESUMPTIVE POSITIVE (CUTOFF=150); BUPRENORPHINE SCREEN,URINE NEGATIVE (CUTOFF=10); METHADONE SCREEN, URINE NEGATIVE (CUTOFF=200); METHAMPHETAMINES SCREEN, URINE NEGATIVE (CUTOFF=500); OXYCODONE SCREEN,URINE NEGATIVE (CUT0FF=100); PCP SCREEN,URINE NEGATIVE (CUTOFF=25); PROPOXYPHENE SCREEN,URINE NEGATIVE (CUTOFF=300); THC SCREEN,URINE 20 NG/ML PRESUMPTIVE POSITIVE (CUTOFF=50)
[2022-10-04 22:59] LABS: COLOR,URINE DARK YELLOW
[2022-10-05 00:11] VITALS: BP 133/83; PULSE 118
== END 2022-10-05 | disposition left against medical advice (07) ==
LOC: MW.ED 19:59
DX: R07.9 Chest pain, unspecified (principal); R00.0 Tachycardia, unspecified; R00.2 Palpitations; E66.9 Obesity, unspecified; Z68.32 Body mass index [BMI] 32.0-32.9, adult; Z88.4 Allergy status to anesthetic agent
CPT/HCPCS: 36415; 71275; 74177; 80053; 80305; 81003; 83690; 83735; 84484; 85025; 85379; 93005; 96361; 96374; 96375; 99285; J2060; J2405; J3490; J7030; J7120; Q9967; 93010; 99291

== ENCOUNTER 2024-01-06 11:49 | Observation (INO) | payer MEDICARE ==
[2024-01-06 12:14] LABS: BASOPHILS ABSOLUTE AUTO 0.04 K/uL (0.00-0.20); BASOPHILS PERCENT AUTO 0.3 % (0.0-1.0); EOSINOPHILS ABSOLUTE AUTO 0.03 K/uL (0.00-0.45); EOSINOPHILS PERCENT AUTO 0.2 % (0.0-6.0); HEMATOCRIT 39.5 % (42.0-52.0); IMMATURE GRAN ABSOLUTE AUTO 0.06 K/uL (0.00-0.05); IMMATURE GRAN PERCENT AUTO 0.4 % (0.0-0.4); LYMPHOCYTES ABSOLUTE AUTO 1.93 K/uL (1.00-4.80); LYMPHOCYTES PERCENT AUTO 14.2 % (24.0-44.0); MEAN CORPUSCULAR HGB CONC 35.4 g/dL (32.0-36.0); MEAN CORPUSCULAR VOLUME 84.6 fL (83.0-99.0); MEAN PLATELET VOLUME 9.9 fL (9.4-12.4); MONOCYTES ABSOLUTE AUTO 0.74 K/uL (0.00-0.80); MONOCYTES PERCENT AUTO 5.4 % (0.0-8.0); NEUTROPHILS ABSOLUTE AUTO 10.78 K/uL (1.80-7.70); NEUTROPHILS PERCENT AUTO 79.5 % (41.0-71.0); PLATELET COUNT,PLT 395 K/uL (150-400); RED BLOOD CELL COUNT 4.67 M/uL (4.52-5.90); WHITE BLOOD CELL COUNT,WBC 13.58 K/uL (3.9-11.3)
[2024-01-06] MEDS: LORazepam 2 MG/ML SDV IVPUSH ONE (12:21)
[2024-01-06] MEDS: Ondansetron 4 MG/2 ML SDV IVPUSH ONE (12:21)
[2024-01-06] MEDS: Sodium Chloride 0.9% 2.5 ML Syringe FLUSH PRN (12:22)
[2024-01-06] MEDS: Sodium Chloride 0.9% 10 ML Syringe FLUSH PRN (12:22)
[2024-01-06 13:02] LABS: ALBUMIN 4.2 g/dL (3.4-5.0); BILIRUBIN TOTAL 0.5 mg/dL (0.2-1.0); CALCIUM 9.1 mg/dL (8.5-10.1); CARBON DIOXIDE,CO2 19.8 mmol/L (21.0-32.0); EST CRCL DRUG DOSING (CG) 118.56 mL/min; POTASSIUM,K 3.2 mmol/L (3.5-5.1); PROTEIN TOTAL,TP 8.2 g/dL (6.4-8.2); TSH ULTRASENSITIVE 0.75 uIU/mL (0.36-3.74)
[2024-01-06] MEDS ORDERED: LORazepam 2 MG/ML SDV IVPUSH PRN ×2 (13:38→14:55)
[2024-01-06] MEDS ORDERED: Acetaminophen 325 MG Tab PO PRN (13:38)
[2024-01-06] MEDS: Sodium Chloride 0.9% 1,000 ML IV ONE ×2 (14:00→15:13)
[2024-01-06 14:19] LABS: AMPHETAMINES SCREEN, URINE NEGATIVE (CUTOFF=500); BARBITURATE SCREEN,URINE NEGATIVE (CUTOFF=200); BENZODIAZEPINES SCREEN,URINE NEGATIVE (CUTOFF=150); BUPRENORPHINE SCREEN,URINE NEGATIVE (CUTOFF=10); METHADONE SCREEN, URINE NEGATIVE (CUTOFF=200); METHAMPHETAMINES SCREEN, URINE NEGATIVE (CUTOFF=500); OXYCODONE SCREEN,URINE NEGATIVE (CUT0FF=100); PCP SCREEN,URINE NEGATIVE (CUTOFF=25); THC SCREEN,URINE 20 NG/ML PRESUMPTIVE POSITIVE (CUTOFF=50)
[2024-01-06] MEDS: Thiamine 200 MG/2 ML MDV IVPUSH SCH (15:46)
[2024-01-06] MEDS: Folic Acid 1 MG/0.2 ML UD Syringe IV SCH (15:46)
[2024-01-06] MEDS: Magnesium Sulfate/Water Premix 2 GM in Premix Bag 1 BAG IV ONE (19:45)
[2024-01-06] MEDS: Acetaminophen/HYDROcodone 325-10 MG Tab PO SCH (19:46)
[2024-01-06] MEDS ORDERED: Melatonin 3 MG Tab PO PRN (23:43)
[2024-01-07 06:03] LABS: BASOPHILS ABSOLUTE AUTO 0.03 K/uL (0.00-0.20); BASOPHILS PERCENT AUTO 0.4 % (0.0-1.0); EOSINOPHILS ABSOLUTE AUTO 0.15 K/uL (0.00-0.45); EOSINOPHILS PERCENT AUTO 1.9 % (0.0-6.0); HEMATOCRIT 37.7 % (42.0-52.0); HEMOGLOBIN 12.9 g/dL (14.0-18.0); IMMATURE GRAN ABSOLUTE AUTO 0.01 K/uL (0.00-0.05); IMMATURE GRAN PERCENT AUTO 0.1 % (0.0-0.4); LYMPHOCYTES PERCENT AUTO 25.7 % (24.0-44.0); MEAN CORPUSCULAR HEMOGLOBIN 30.1 pg (28.0-32.0); MEAN CORPUSCULAR HGB CONC 34.2 g/dL (32.0-36.0); MEAN CORPUSCULAR VOLUME 87.9 fL (83.0-99.0); MEAN PLATELET VOLUME 10.2 fL (9.4-12.4); MONOCYTES ABSOLUTE AUTO 0.67 K/uL (0.00-0.80); MONOCYTES PERCENT AUTO 8.6 % (0.0-8.0); NEUTROPHILS ABSOLUTE AUTO 4.93 K/uL (1.80-7.70); NEUTROPHILS PERCENT AUTO 63.3 % (41.0-71.0); PLATELET COUNT,PLT 282 K/uL (150-400); RED BLOOD CELL COUNT 4.29 M/uL (4.52-5.90); WHITE BLOOD CELL COUNT,WBC 7.79 K/uL (3.9-11.3)
[2024-01-07 06:27] LABS: A/G RATIO 0.9 (0.9-1.6); ALBUMIN 3.2 g/dL (3.4-5.0); BILIRUBIN TOTAL 0.5 mg/dL (0.2-1.0); CALCIUM 8.3 mg/dL (8.5-10.1); CARBON DIOXIDE,CO2 29.3 mmol/L (21.0-32.0); EST CRCL DRUG DOSING (CG) 132.61 mL/min; MAGNESIUM 2.3 mg/dL (1.8-2.4); POTASSIUM,K 3.7 mmol/L (3.5-5.1); PROTEIN TOTAL,TP 6.6 g/dL (6.4-8.2)
[2024-01-07] MEDS: Lisinopril 10 MG Tab PO SCH (08:55)
[2024-01-07 10:33] VITALS: BP 139/84; PULSE 79
== END 2024-01-07 10:58 | disposition home or self-care (01) ==
LOC: MW.ED 11:49 → MW.MS 13:25
PROVIDERS: ADMIT Family Medicine; ATTEND Family Medicine
DX: R07.89 Other chest pain (principal); F10.10 Alcohol abuse, uncomplicated; I10 Essential (primary) hypertension; F32.A Depression, unspecified; F41.9 Anxiety disorder, unspecified; Z79.899 Other long term (current) drug therapy
CPT/HCPCS: 36415; 71045; 80053; 80305; 80307; 83690; 83735; 84100; 84443; 84484; 85025; 93005; 96361; 96365; 96366; 96375; 99285; A9270; G0378; J2060; J2405; J3411; J3475; J3490; J7030; 93010; 96374; 99291